=== PATIENT | male | born 1965 | race Caucasian/White ===

== ENCOUNTER 2018-12-08 20:09 | Inpatient (IN) | payer MEDICAID ==
[~2018-12-08] VITALS: Ht 175.3 cm; Wt 93.0 kg
--- NOTE | 2018-12-08 20:19 | NUR ---
PATIENT WENT FOR CT SCAN AND RETURN TO THE ROOM.
--- NOTE | 2018-12-08 20:30 | NUR ---
PATIENT WAS BROUGHT IN BY EMS WITH COMPLAINT OF LUQ ABDOMINAL PAIN, SHARP PAIN.
--- NOTE | 2018-12-08 21:00 | NUR ---
PATIENT WA SEEN BY WITH. MEDICATED WITH TORADOL IM.
[2018-12-08 21:09] LABS: BASOPHIL % 0.3 % (0-2); PLATELET COUNT 244 x10^3mcL (130-400)
[2018-12-08 21:11] LABS: RED CELL DISTRIBUTION WIDTH 15.3 % (11.5-14.5)
[2018-12-08 21:15] LABS: CALCIUM 9.3 mg/dL (8.5-10.1); CARBON DIOXIDE 25.5 mmol/L (21-32); CHLORIDE SERUM 105 mmol/L (98-107); CREATININE SERUM 0.9 mg/dL (0.7-1.3); GFR1 > 60 mL/min; GLUCOSE SERUM 221 mg/dL (74-106); POTASSIUM SERUM 3.5 mmol/L (3.5-5.1); SODIUM SERUM 144 mmol/L (136-145)
[2018-12-08 21:19] LABS: ALBUMIN 3.8 g/dL (3.4-5.0); ALKALINE PHOSPHATASE 98 U/L (46-116); ALT/SGPT 18 U/L (16-63); AST/SGOT 10 U/L (15-37); BILIRUBIN TOTAL 0.42 mg/dL (0.20-1.00); LIPASE 281 IU/L (73-393); TOTAL PROTEIN, SERUM 7.4 g/dL (6.4-8.2)
--- NOTE | 2018-12-09 00:12 | NUR ---
RESIDENT IS AT THE BEDSIDE. PATIENT IS ADMITTED.
--- NOTE | 2018-12-09 00:35 | NUR ---
REPORT WAS GIVEN TO BRIAN. PATIENT TRANSPORTED TO ROOM 242B.
[2018-12-09 00:39] LABS: T3 TOTAL 1.04 ng/mL
[2018-12-09 00:44] LABS: FREE T4 1.28 ng/dL (0.76-1.46); FREE THYROXINE INDEX 2.8 ug/dL (1.4-4.5); T4(THYROXINE) 8.9 ug/dL (4.7-13.3)
[2018-12-09 00:49] LABS: CHOLESTEROL/HDL RATIO 3.3; MAGNESIUM 2.1 mg/dL (1.8-2.4); PHOSPHOROUS 3.5 mg/dL (2.5-4.9)
[2018-12-09 00:51] LABS: microscopic required? NO
--- NOTE | 2018-12-09 01:05 | NUR ---
PER DR VALLES, PT NOT READY TO BE TRANSPORTED TO FLOOR YET UNTIL HE IS ABLE TO SPEAK WITH SURGEON.
--- NOTE | 2018-12-09 02:19 | NUR ---
PATIENT IS RESTING WITH NO COMPLAINT AT THIS TIME. PATIENT CANNOT LEAVE THE ED UNTIL SEEN BY SURGERY.
[2018-12-09 02:21] LABS: urine erythrocyte NEGATIVE (NEGATIVE)
[2018-12-09 02:32] LABS: AMPHETAMINE QUAL UR NONE DETECTED (See below)
--- NOTE | 2018-12-09 02:43 | NUR ---
SURGEON AT THE BEDSIDE TALKING TO THE PATIENT
--- NOTE | 2018-12-09 03:02 | NUR ---
NURSE WAS UPDATED ON THE PATIENT STATUS AFTER PATIENT WAS SEEN. PATIENT TRANSPORTED TO ROOM.
--- NOTE | 2018-12-09 03:14 | NUR ---
RECEIVED REPORT FROM MELISSA COFFMAN. PT IS STILL IN BED 15 WHILE WAITING FOR JESS NEELY TO SECURE THE GUN.
--- NOTE | 2018-12-09 03:50 | NUR ---
PT TRANSPORTED TO [facility]IA [facility] ON CM BY OLIVE COFFMAN AND [place] EMT. PT IN NAD
--- NOTE | 2018-12-09 04:25 | NUR ---
RECEIVED PT FROM ED VIA [employer]. KEPT COMFORTABLE IN BED. A/O X4. DENIES HEADACHE/DIZZINESS. ADM. WITH COMPLAINTS OF LT QUAD.ABD. PAIN, STATES 6/10 PAIN LEVEL AT THIS TIME. WILL MEDICATE ORDERED. AFEBRILE AND VITAL SIGNS STABLE.PLACED ON TELE #10, MONITOR SHOWS SR, DENIES CP OR PRESSURE. ABD. SOFT, OBESE, LAST BM 12/09/18.BS ACTIVE, NO N/V NOTED.SKIN WARM AND DRY TO TOUCH, INTACT. NO EDEMA NOTED. AMBULATORY. ORIENTED TO ROOM AND SURROUNDINGS. BED IN LOW POSITION. CALL LIGHT WITHIN REACH. WILL CONTINUE TO MONITOR.
--- NOTE | 2018-12-09 05:22 | NUR ---
STARTED ON IVF, NS AT 100ML/HR, INTACT AND INFUSING VIA RFA, SITE CLEAR. NPO EXCEPT MEDS MAINTAINED. MEDICATED WITH MORPHINE SULFATE 2MG IV ORDERED. KEPT COMFORTABLE. CALL LIGHT WITHIN REACH . WILL CONTINUE TO MONITOR.
[2018-12-09 06:13] LABS: PLATELET COUNT 211 x10^3mcL (130-400)
[2018-12-09 06:37] LABS: CALCIUM 9.2 mg/dL (8.5-10.1); CHLORIDE SERUM 109 mmol/L (98-107); CREATININE SERUM 0.7 mg/dL (0.7-1.3); GFR1 > 60 mL/min; GLUCOSE SERUM 138 mg/dL (74-106); MAGNESIUM 2.1 mg/dL (1.8-2.4); PHOSPHOROUS 4.2 mg/dL (2.5-4.9); POTASSIUM SERUM 3.7 mmol/L (3.5-5.1); SODIUM SERUM 147 mmol/L (136-145)
--- NOTE | 2018-12-09 07:05 | NUR ---
RECIEVED PT FROM NIGHT NURSE. PT IS LAYING DOWN IN BED WITH HOB UP. PT LOOKS TO BE IN NO ACUTE DISTRESS AT THIS TIME. RESPIRATIONS EVEN AND UNLABORED ON ROOM AIR. PT IS COMPLAINING OF 7/10 PAIN TO THE LUQ AND STATES THAT IT IS WORSE WITH MOVEMENT. IV SITE IS PATENT WITH NO SIGNS OF ERYTHEMA OR SWELLING WITH IV FLUIDS INFUSING. TELE MONITOR PRESENT. BED IN LOWEST POSITION, CALL LIGHT WITHIN REACH. WILL CONTINUE TO MONITOR.
[2018-12-09 07:15] LABS: RED CELL DISTRIBUTION WIDTH 14.9 % (11.5-14.5)
[2018-12-09 08:10] VITALS: BP 129/60
--- NOTE | 2018-12-09 10:00 | NUR ---
PT TAKEN DOWN TO X-RAY. PT IV H/L. PT TAKEN DOWN VIA WHEELCHAIR. WILL CONTINUE TO MONITOR.
--- NOTE | 2018-12-09 10:50 | NUR ---
CALLED TO XRAY ROOM 1, FOUND PATIENT SITTING ON FLOOR, PER BOX MAKER PATIENT BECAME DIZZY AND FELL, PATIENT REPORTS BEING LIGHTHEADED AND NEAR LOSS OF CONSCIOUSNESS AT TIME OF FALL. REPORTEDLY STRUCK BOTH KNEES ON FLOOR AND HIT RIGHT SIDE OF HEAD AGAINST TABLE DURING FALL. DR SIEGEL CALLED IN TO EVALUATE PATIENT AND ORDERED BILATERAL KNEE XRAYS. VS POST FALL SPO2=97%, HEART RATE=71, RR=15, AX=220/63. NOTIFIED PATIENT'S NURSE MARILYN.
--- NOTE | 2018-12-09 11:00 | NUR ---
PT RETURNED FROM X-RAY. NURSE AND PT REPORTED THAT PT PASSED OUT AND FELL IN X-RAY. PT CURRENTLY IS COMPLAINING OF NO PAIN WHILE LAYING DOWN IN BED AND STATES THAT HE FEELS PAIN TO THE LEFT KNEE ONLY WHEN BEARING WEIGHT. PT LOOKS TO BE IN NO ACUTE DISTRESS AT THIS TIME. CURRENT BP: 133/94, HR; 80, O2; 95% ON ROOM AIR. ERYTHEMA TO LEFT MID BACK BELOW AXILLARY, PT DOES NOT RECALL FALLING AND HITTING THE BACK. PT DENIES ANY PAIN WHEN PALPATING AREA OR LEFT KNEE. CALL LIGHT WITHIN REACH. WILL CONTINUE TO MONITOR.
--- NOTE | 2018-12-09 11:00 | NUR ---
DR. AMADOR AND DR. TOURE AWARE OF PT'S FALL.
--- NOTE | 2018-12-09 11:25 | NUR ---
PT TAKEN DOWN TO OR VIA GURNEY. PT TOOK HEARING AIDS DOWN STAIRS, PT STATES UNABLE TO HEAR WITHOUT THE HEARING AIDS. PROVIDED PT WITH CONTAINER THAT IS LABELED WITH PT LABEL, OR NURSE AWARE. TELE MONITOR INFORMED OF PT GOING TO OR.
[2018-12-09 11:38] LABS: BAND NEUTROPHIL 19 % (0-10); BASOPHIL 0 % (0-2); MONOCYTE 3 % (0-7); SEGMENTED NEUTROPHILS 77 % (37-75)
[2018-12-09 11:39] LABS: PLATELET MORPHOLOGY LARGE PLATELET SEEN; rbc morphology (normal/abnorm) ABNORMAL (NORMAL); tear drop cell (dacryocyte) 1+
--- NOTE | 2018-12-09 16:03 | NUR ---
RECIEVED PT FROM OR NURSE. PT IS LAYING DOWN IN BED AND LOOKS TO BE DROWSY, PT IS RESPONDING TO COMMANDS AND IS ORIENTED. CURRENT VITALS ARE BP: 151/73, HR:107, RR: 22, O2: 96% ON 5L, TEMP: 97.6, PAIN 5/10. PT STATES PAIN IS TOLERABLE AT THIS TIME. GUAZE AND ABD BINDER TO ABD, ADALBERTO DRAIN TO RLQ. DRESSING CDI. BED IN LOWEST POSITION, CALL LIGHT WITHIN REACH. FAMILY MEMBER AT BEDSIDE. NGT SUCTION TO LOW INTERMITTENT SUCTION. WILL CONITNUE TO MONITOR.
--- NOTE | 2018-12-09 17:06 | NUR ---
PT COMPLAINING OF 8/10 PAIN TO THE ABD. PT IS MORE AWAKE AND ALERT AT THIS TIME. DRESSING TO ABD IS CDI. CURRENT VITALS ARE BP: 139/75, HR: 104, RR: 20, O2 94% ON 5L NC. WILL MEDICATE ACCORDING TO EMAR.
[2018-12-09 17:08] VITALS: BP 139/75
--- NOTE | 2018-12-09 18:19 | NUR ---
PT IS LAYING DOWN IN BED RESTING WITH EYES CLOSED AND HOB UP. PT IS EASILY AROUSABLE AND IS ORIENTED TO X4. PT LOOKS TO BE IN NO ACUTE DISTRESS AND STATES PAIN IS TOLERABLE AT THIS TIME. RESPIRATIONS EVEN AND UNLABORED ON 5L NC. IV SITE PATENT WITH NO SIGNS OF ERYTHEMA OR SWELLING WITH IV FLUIDS INFUSING. BED IN LOWEST POSITION, FAMILY AT BEDSIDE. WILL ENDORSE TO ONCOMING.
--- NOTE | 2018-12-09 19:46 | NUR ---
RECEIVED PT IN BED AAOX4 , C/O INCISION PAIN 10/01 WILL MEDICATE PT ORDERED , NOTED PT WITH MARIA M ASENCIO NGT TO LOW SUCTION NO OUTPUT AT THE MOMENT , PT'S S/P X-LAP REPAIR OF PERFORATED BOWEL WITH LARGE ABD INCISION DRESSING CLEAN DRY AND INTACT WITH ABD BINDER , ADALBERTO DRAIN NOTED SCANT AMOUNT OF SEROSANGUINEOUS DRAINAGE NOTED , UNABE TO COMPRESSED ADALBERTO BULB WILL NOTIFY ( SURGEON ) LUNG SOUNDS DIMINISHED , ON 5L N/C SAT 96% LOWERED 02 TO 3L WILL SPORT CHECK PT'S 02 IN AN HOUR , NO RESP DISTRESS NOTED. SCD'S STOCKING OFF PER PT REQUEST .
[2018-12-09 20:01] VITALS: BP 144/65
[2018-12-09 20:06] VITALS: BP 128/81
--- NOTE | 2018-12-09 20:22 | NUR ---
SPOKE WITH DR WU REGARDING ADALBERTO BULB , STATED "HAVE RESIDENT LOOK AT IT AND CHANGE ADALBERTO BULB " CHARGE NURSE AWARE CALLED OR FOR ANOTHER BULB .
--- NOTE | 2018-12-09 20:45 | NUR ---
CHARGE NURSE AND OR NURSE CHANGED ADALBERTO BULB SOME SUCTION NOTED, BUT ADALBERTO BULB WONT STAY COMPRESSED , WILL DO MANUAL COMPRESSION FREQUENTLY FOR NOW , DR PAK AT THE BED SIDE ASSESED ADALBERTO . PT C/O INCISION PAIN 02/01 SURU MEDICATE PT WITH MORPHINE 2MG IVP . V/S 156/71 MAP 97 HR 96 SAT 95% ON 3L .
--- NOTE | 2018-12-10 00:05 | NUR ---
SURU RN MEDICATED PT WITH MORPHINE 2MG IVP FOR PAIN 10 V/S 141/69 MAP 90 SAT 93% ON 3L , ADALBERTO IN PLACE DRAINING DARK BROWN FLUIDS . WILL CON'T TO COMPRESS ADALBERTO MANUAL .INCISION DRESSING C/D/I , ABD BINDER INPLACE .
[2018-12-10 00:09] LABS: CALCIUM 8.5 mg/dL (8.5-10.1); CHLORIDE SERUM 115 mmol/L (98-107); CREATININE SERUM 1.2 mg/dL (0.7-1.3); GFR1 > 60 mL/min; GLUCOSE SERUM 200 mg/dL (74-106); POTASSIUM SERUM 4.1 mmol/L (3.5-5.1); SODIUM SERUM 149 mmol/L (136-145)
[2018-12-10 00:14] LABS: PLATELET COUNT 253 x10^3mcL (130-400)
[2018-12-10 00:20] LABS: RED CELL DISTRIBUTION WIDTH 15.6 % (11.5-14.5)
[2018-12-10 00:32] LABS: BAND NEUTROPHIL 4 % (0-10); MONOCYTE 3 % (0-7); SEGMENTED NEUTROPHILS 91 % (37-75)
[2018-12-10 00:34] LABS: acanthocyte (spur cell) 1+; rbc morphology (normal/abnorm) ABNORMAL (NORMAL)
[2018-12-10 00:35] LABS: PLATELET MORPHOLOGY PLATELETS NORMAL
--- NOTE | 2018-12-10 01:36 | NUR ---
PT VOIDED CLEAR YELLOW URINE 900ML VIA URINAL .
--- NOTE | 2018-12-10 03:23 | NUR ---
PT'S AWAKE C/O PAIN 02/01 WILL MEDICATE PT WITH PRN ORDERED, V/S 141/68 MAP 92 HR 89 SAT 96% , NGT INPLACE NO OUTPUT AT THE MOMENT , COMPRESSED ADALBERTO BULB.
[2018-12-10 05:35] VITALS: BP 136/75
--- NOTE | 2018-12-10 06:34 | NUR ---
MORPHINE 2MG GIVEN BY ANY IVP FOR PAIN , V/S 136/75 HR 89. ADALBERTO DRAINED 50ML BROWNISH COLOR FLUIDS , NGT NO OUTPUT , PLACEMENT CHECKED . DRESSING AND ABD BINDER CLEAN DRY AND INTACT . PT IN NO DISTRESS , ALL DUE MEDS GIVEN NO REACTION NOTED .PIV INTACT INFUSING WELL , TELE NSR .
[2018-12-10 06:43] LABS: PLATELET COUNT 255 x10^3mcL (130-400)
[2018-12-10 07:01] LABS: CALCIUM 9.1 mg/dL (8.5-10.1); CARBON DIOXIDE 17.8 mmol/L (21-32); CHLORIDE SERUM 117 mmol/L (98-107); CREATININE SERUM 1.1 mg/dL (0.7-1.3); GFR1 > 60 mL/min; GLUCOSE SERUM 166 mg/dL (74-106); MAGNESIUM 2.3 mg/dL (1.8-2.4); PHOSPHOROUS 2.9 mg/dL (2.5-4.9); POTASSIUM SERUM 4.6 mmol/L (3.5-5.1); SODIUM SERUM 151 mmol/L (136-145)
[2018-12-10 07:13] LABS: RED CELL DISTRIBUTION WIDTH 16.1 % (11.5-14.5)
--- NOTE | 2018-12-10 07:25 | NUR ---
RECEIVED PT FROM SHIFT NURSE A/OX4 SITTING UP IN BED. APPEARS IN NO ACUTE DISTRESS NOTED. NG TUBE IN PLACE UNDER LOW SUCTION. IV INTACT AND PATENT. ADALBERTO DRAIN IN PLACE. ABD DRESSING INTACT CDI WITH ABD BINDER. BED IN LOW POSITION. CALL LIGHT WITHIN REACH. WILL CONTINUE TO MONITOR.
[2018-12-10 09:02] VITALS: BP 149/72
[2018-12-10 09:32] LABS: BAND NEUTROPHIL 4 % (0-10); SEGMENTED NEUTROPHILS 96 % (37-75)
[2018-12-10 09:35] LABS: PLATELET MORPHOLOGY N
--- NOTE | 2018-12-10 09:35 | NUR ---
PT C/O OF LT SHOULDER PAIN 10/01. GAVE NORCO ORDERED. WILL CONTINUE TO MONITOR.
--- NOTE | 2018-12-10 09:50 | NUR ---
PT ASLEEP BUT AROUSABLE. WILL CONTINUE TO MONITOR.
--- NOTE | 2018-12-10 11:40 | NUR ---
PT C/O OF ABD PAIN 11/01. GAVE MORPHINE ORDERED. WILL CONTINUE TO MONITOR.
--- NOTE | 2018-12-10 12:00 | NUR ---
PT ASLEEP BUT AROSUABLE. WILL CONTINUE TO MONITOR.
[2018-12-10 12:35] VITALS: BP 148/71
[2018-12-10 13:23] LABS: rbc morphology (normal/abnorm) ABNORMAL (NORMAL)
--- NOTE | 2018-12-10 14:45 | NUR ---
PT TALKING ON THE PHONE. APPEARS IN NO ACUTE DISTRESS. DENIES ANY ABD PAIN AT THIS TIME. CALL LIGHT WITHIN REACH. WILL CONTINUE TO MONITOR.
--- NOTE | 2018-12-10 16:20 | NUR ---
CHANGED ABD DRESSING CDI PER DR WU
--- NOTE | 2018-12-10 16:52 | NUR ---
Initial Nutrition Assessment/Nutritional consult Dx: Ruptured Viscus PMHx: DM, Type II, HLD PSHx: Sigmoidal resection, gastric bypass surgery, bilateral testicular removal surgery, cholecystectomy, cosmetic surgery for gynecomastia per H and P Labs: (12/10) Na 151H, K 4.6, BG 166H, BUN 20H, Cr 1.1, A1c 9H, AST 10L, ALT 18, WBC 19.7H, H/H 14.1/43 Accucheck readings (12/09-12/10) 130-211 mg/dL with most readings >180 mg/dL. Insulin coverage is provided PRN. Meds: Colace, D10%, Dilaudid, Flagyl, Humulin, Morphine, [place], Protonix, Zofran, Zosyn Diet: NPO TPN: D10% AA 4.25% at 80 mL/Hr, which provides 192 g dextrose (652 kcal) and 81.6 g protein (179.6 kcal). Current regimen meets >75% estimated calorie and protein needs. Ht: 69" (175.3 cm) Wt: 194# (88.3 kg) BMI: 28.7 (WNL) IBW: 151# %IBW: 128% AJBW: 162# (73.5 kg) UBW: 190-200# Age: 53 y/o male Food Allergies: NKFA Skin: Abdominal sx incision site Louis: 21 Edema: None GI: Last BM x 2 (12/08 prior to admission) ADALBERTO drain: (12/10) 65 mL Per H&P, pt. admitted with extensive sx history (see above) accompanied by severe abdominal pain without c/o N/V/D/C. Pain onset was after pt. had 2 bowel movements. Denies BM after onset of abdominal pain. Abdominal/Pelvic CT scan conducted on 12/08/18 with findings of intraperitoneal air indicating viscous disruption per provider notes. Pt. underwent exploratory laparotomy procedure on 12/09/18. Pt. with NG tube in place during bedside visit with minimal output noted. No c/o GI distress at this time, noted with abdominal pain. Consult: TPN Problem with: No c/o N/V/D/C Problems with: Chewing: N Swallowing: N Recent wt change: None %wt change: N/A Vitamin/Supplement use: None Special diet at home: Regular Physical activity: None Education: Diet education not appropriate at this time, as pt. is NPO and is requiring TPN for nutrition support. Estimated Nutritional Needs Based on adjusted body weight 73.5 kg: Energy: 1668-1772 kcal/d (30-32 kcal/kg-wound healing support) Protein: 88-110 g/d (1.2-1.4 g/kg)-sound healing support/preservation of LBM Fluid: 5757-8011 ml/d (1 ml/kcal-fluid balance) or per doctor Nutrition Diagnosis 1. Increased nutrient needs r/t increased metabolic demands AEB presence of mid-abdominal sx wound s/p exploratory laparotomy and needs for TPN for nutrition support. Intervention/RD recommendations 1. Continue PPN regimen of D10% AA 4.25% with goal running rate of 80 mL/Hr to provide 1920 kcal, 192 g dextrose and 81.6 g protein, which meets >75% estimated needs, factoring in increased nutrient needs. GIR 1.51 (goal <4 mg/kg/min) Monitor/Evaluate Goal: TPN intake at least 75% of estimated needs Monitor: TPN intake, Labs (hepatic function, BG levels <180 mg/dL), GI function, TPN tolerance F/U in 2-3 days as high risk (12/12-/12/13)
--- NOTE | 2018-12-10 17:00 | NUR ---
Intervention/RD recommendations 1. Increase PPN regimen of D10% AA 4.25% with goal running rate of 100 mL/Hr to provide 1224 kcal, 240 g dextrose and 102 g protein, which meets >75% estimated protein needs, and 56% lower end of kcal needs. GIR 1.89 (goal <4 mg/kg/min)
--- NOTE | 2018-12-10 17:40 | NUR ---
PT C/O OF ABD PAIN 11/01. GAVE MORPHINE ORDERED. WILL CONTINUE TO MONITOR.
[2018-12-10 18:04] VITALS: BP 145/75
--- NOTE | 2018-12-10 18:26 | NUR ---
PT ASLEEP IN BED BUT AROUSABLE. NO ACUTE DISTRESS NOTED. IVS INTACT AND PATENT. ADALBERTO DRAIN IN PLACE. EMPTIED 30ML OF BROWN DRAINAGE. DR. WU AWARE. ABD DRESSING CDI. BED IN LOW POSITION. CALL LIGHT WITHIN REACH. WILL BE ENDORSED.
--- NOTE | 2018-12-10 20:10 | NUR ---
PT RESTING IN BED COMFORTABLY. COMPLAINING OF 5/10 ACHING PAIN AT SURGICAL SITE. A/O X4, CALM AND COOPERATIVE. [place], JADE HEARING AIDS. TELE 10, NSR. NO COMPLAINTS OF CHEST PAIN, N/V, DIZZINESS, OR PALPATATIONS. LUNG SOUNDS DIMINISHED JADE. 3/L NC, O2 SAT 96%. BOWEL SOUNDS HYPOACTIVE, LAST BM, 12/08. PT ADMITS TO PASSING GAS AND BURPING. ABD INCISION DRESSING CDI. ADALBERTO DRAIN TO R ABD. RFA IV X2 CDI, INFUSING. BED AT LOWEST POSITION, CALL LIGHT WITHIN REACH. WILL CONTINUE TO MONITOR.
[2018-12-10 20:45] VITALS: BP 153/74
--- NOTE | 2018-12-10 21:30 | NUR ---
PT COMPLAINING OF 6/10 SHARP PAIN AT INCISION SITE. GAVE PRN MORPHINE. WILL CONTINUE TO MONITOR.
--- NOTE | 2018-12-11 | NUR ---
PT RESTING IN BED COMFORTABLY, NO S/S OF PAIN AT THIS TIME. BREATHING EVEN AND UNLABORED ON 3L NC. NO S/S OF SOB. BED AT LOWEST POSITION, CALL LIGHT WITHIN REACH. WILL CONTINUE TO MONITOR.
--- NOTE | 2018-12-11 00:51 | NUR ---
PT COMPLAINING OF SHARP 7/10 PAIN AT INCISION SITE. MEDICATED WITH PRN DILAUDED. CALL LIGHT WITHIN REACH. WILL CONTINUE TO MONITOR.
[2018-12-11 06:02] VITALS: BP 152/72
--- NOTE | 2018-12-11 06:53 | NUR ---
PT RESTING IN BED COMFORTABLY. NO S/S OF PAIN AT THIS TIME. BREATHING EVEN AND UNLABORED ON 3L NC. NO S/S OF SOB, SPO2 95. ABD DRESSING CDI. RFA IVS CDI. ADALBERTO DRAIN 0 OUTPUT. [address] MATTHEWS AWARE, AND AT BEDSIDE. BED AT LOWEST POSITION. CALL LIGHT WITHIN REACH. WILL ENDORSE TO DAY NURSE.
[2018-12-11 07:16] LABS: PLATELET COUNT 254 x10^3mcL (130-400)
--- NOTE | 2018-12-11 07:17 | NUR ---
RECEIVED PT FROM SHIFT NURSE ASLEEP BUT AROUSABLE. NO ACUTE DISTRESS NOTED. RESP EVEN AND UNLABORED ON 3L NC. IV INTACT AND PATENT. CALL LIGHT WITHIN REACH. WILL CONTINUE TO MONITOR.
[2018-12-11 07:37] LABS: CALCIUM 9.2 mg/dL (8.5-10.1); CARBON DIOXIDE 19.2 mmol/L (21-32); CHLORIDE SERUM 120 mmol/L (98-107); GFR1 > 60 mL/min; GLUCOSE SERUM 160 mg/dL (74-106); MAGNESIUM 2.2 mg/dL (1.8-2.4); PHOSPHOROUS 2.2 mg/dL (2.5-4.9); POTASSIUM SERUM 3.9 mmol/L (3.5-5.1); SODIUM SERUM 155 mmol/L (136-145)
[2018-12-11 07:41] LABS: BASOPHIL % 0 % (0-2); RED CELL DISTRIBUTION WIDTH 16.1 % (11.5-14.5)
--- NOTE | 2018-12-11 08:10 | NUR ---
PT C/O OF ABD PAIN 12/01. GAVE MORPHINE ORDERD. WILL CONTINUE TO MONITOR.
--- NOTE | 2018-12-11 08:37 | NUR ---
PT ASLEEP BUT AROUSABLE. NO ACUTE DISTRESS NOTED. CALL LIGHT WITHIN REACH. WILL CONTINUE TO MONITOR.
[2018-12-11 09:30] VITALS: BP 158/77
--- NOTE | 2018-12-11 11:42 | NUR ---
PT C/O OF ABD PAIN. GAVE MORPHINE ORDERED. WILL CONTINUE TO MONITOR.
--- NOTE | 2018-12-11 12:46 | NUR ---
PT ASLEEP BUT AROUSABLE. WILL CONTINUE TO MONITOR.
[2018-12-11 13:27] VITALS: BP 159/78
--- NOTE | 2018-12-11 13:35 | NUR ---
PT C/O OF RT SHOULDER PAIN. GAVE DILAUDID ORDERED. WILL CONTINUE TO MONITOR.
--- NOTE | 2018-12-11 14:07 | NUR ---
PT ASLEEP BUT AROUSABLE. WILL CONTINUE TO MONITOR.
[2018-12-11 15:16] VITALS: BP 134/76
--- NOTE | 2018-12-11 15:17 | NUR ---
ASSISTED PT TO CHAIR. NO ACUTE DISTRESS. CALL LIGHT WITHIN REACH. WILL CONTINUE TO MONITOR.
--- NOTE | 2018-12-11 16:02 | NUR ---
PT C/O OF ABD PAIN 11/01. GAVE MORPHINE ORDERED. WILL CONTINUE TO MONITOR.
--- NOTE | 2018-12-11 16:30 | NUR ---
PT ASLEEP BUT AROUSABLE. WILL CONTINUE TO MONITOR
[2018-12-11 16:53] VITALS: BP 155/86
--- NOTE | 2018-12-11 18:24 | NUR ---
PT RESTING IN BED. NO C/O OF LEG PAIN AT THIS TIME. RESP EVEN AND UNLABORED ON 3L NC. NG TUBE IN PLACE WITH MEDIUM SUCTION. IVS INTACT AND PATENT. ABD DRESSING CDI. ADALBERTO DRAIN IN PLACE. REMOVED 20 ML OF BROWN DRAINAGE FROM ADALBERTO DRAIN. BED IN LOW POSITION. CALL LIGHT WITHIN REACH. WILL BE ENDORSED.
--- NOTE | 2018-12-11 19:57 | NUR ---
PT RESTING IN BED COMFORTABLY, COMPLAINING OF SHARP 5/10 PAIN AT INCISION SITE. MEDICATED WITH PRN MORPHINE. WILL MONITOR. PT A/O X4 CALM AND COOPERATIVE. [place] JADE EARS, USES HEARING AIDS. TELE 10, SINUS TACH HR 117. DENIES CHEST PAIN, N/V, DIZZINESS, OR PALPATATIONS. PALPABLE PULSES, NO EDEMA NOTED. LUNG SOUNDS CTA, DENIES SOB. O2 SAT 94% ON 3L NC. HYPOACTIVE BOWEL SOUNDS X4. DENIES PASSING GAS OR BURPING TODAY. ABD INCISION DRESSING CDI, ADALBERTO DRAIN TO R ABD INTACT AND DRAINING. RFA IVS CDI. BED AT LOWEST POSITION, CALL LIGHT WITHIN REACH. WILL CONTINUE TO MONITOR.
[2018-12-11 20:42] VITALS: BP 148/84
--- NOTE | 2018-12-11 23:20 | NUR ---
PT COMPLAINING OF 5/10 SHARP PAIN AT INCISION SITE. PT MEDICATED WTIH PRN MORPHINE. WILL CONTINUE TO MONITOR.
--- NOTE | 2018-12-12 | NUR ---
PT RESTING IN BED COMFORTABLY, NO S/S OF PAIN AT THIS TIME. BREATHING EVEN AND UNLABORED ON 3L NC. DENIES SOB. ADALBERTO DRAIN SUCTIONED. BED AT LOWEST POSITION, CALL LIGHT WITHIN REACH. WILL CONTINUE TO MONITOR.
--- NOTE | 2018-12-12 02:22 | NUR ---
I HAVE REVIEWED THE DATA COLLECTION BY MEGHNA GRANDE: CRIS LIAO ENTERED ON 12/11-12/12 I CONCUR WITH THE DATA AND ANY EXCEPTIONS OR COMMENTS ARE LISTED BELOW:
--- NOTE | 2018-12-12 02:52 | NUR ---
PT COMPLAINING OF 4/10 SHARP PAIN AT INCISION SITE. MEDICATED WITH PRN MORPHINE. WILL CONTINUE TO MONITOR.
[2018-12-12 05:30] VITALS: BP 157/85
--- NOTE | 2018-12-12 06:00 | NUR ---
PT RESTING IN BED COMFORTABLY, STATES NO PAIN AT THIS TIME. BREATHING EVEN AND UNLABORED ON 3L NC. DRESSING TO ABD CDI. ADALBERTO DRAIN TO SUCTION DRAINED 5ML OUTPUT. NG TUBE TO LOW INTERMITTENT SUCTIONING, 0 ML OUTPUT. BED AT LOWEST POSITION, CALL LIGHT WITHIN REACH. WILL ENDORSE TO DAY NURSE.
[2018-12-12 06:45] LABS: PLATELET COUNT 273 x10^3mcL (130-400)
[2018-12-12 07:13] LABS: CALCIUM 9.4 mg/dL (8.5-10.1); CARBON DIOXIDE 18.3 mmol/L (21-32); CHLORIDE SERUM 126 mmol/L (98-107); CREATININE SERUM 1.1 mg/dL (0.7-1.3); GFR1 > 60 mL/min; GLUCOSE SERUM 224 mg/dL (74-106); MAGNESIUM 2.4 mg/dL (1.8-2.4); PHOSPHOROUS 2.1 mg/dL (2.5-4.9); POTASSIUM SERUM 3.2 mmol/L (3.5-5.1)
[2018-12-12 07:14] LABS: RED CELL DISTRIBUTION WIDTH 16.1 % (11.5-14.5)
[2018-12-12 07:46] LABS: SODIUM SERUM 164 mmol/L (136-145)
--- NOTE | 2018-12-12 07:50 | NUR ---
PATIENT A/OX4, ABLE TO MAKE NEEDS KNOWN AND FOLLOW COMMANDS, QUINAULT NOTED WITH B/L HEARING AIDS IN PLACE. DENIES HEADACHE/DIZZINESS. TELE [address], DENIES CP, HR 96. LUNGS CTA, 3L NC IN PLACE O2 SAT 95%, BREATHING E/U, UTILIZING INCENTIVE SPIROMETER REACHING 1000. PERIPHERAL PULSES PLAPLBE, NO EDEMA. NGT IN PLACE TO LIS, NO OUTPUT. ABD WITH DRESSING CDI, ADALBERTO DRAIN TO RT SIDE SCANT SEROUS OUTPUT LIGHT KOO/YELLOWISH COLOR. BOWEL SOUNDS HYPOACTIVE, PATIENT ADMITS TO BURPING PASSED GAS YESTERDAY. NO BM YET POSTOP. REPORTS PAIN PRESENT TO ABD, WILL GIVE PAIN MED. VOIDS FREELY TO URINAL, YELLOW/CLEAR. 2 IV'S TO RFA, SITES WNL, NO REDNESS/SWELLING. TPN RUNNING AT 80ML/HR. CALL LIGHT WITHIN REACH. WILL CONT TO MONITOR.
--- NOTE | 2018-12-12 08:15 | NUR ---
RECEIVED CRITICAL VALUE NA [address] BYRON LOCKE.
[2018-12-12 09:41] VITALS: BP 148/84
[2018-12-12 10:06] LABS: BAND NEUTROPHIL 2 % (0-10); BASOPHIL 0 % (0-2); MONOCYTE 3 % (0-7); SEGMENTED NEUTROPHILS 93 % (37-75)
[2018-12-12 10:10] LABS: PLATELET MORPHOLOGY PLATELETS NORMAL
--- NOTE | 2018-12-12 11:10 | NUR ---
PER DR GILMORE, REPLACE FLUID THERAPY TO D5W IVF AT 80ML/HR. VERIFIED BY PHARMACY. INITIATED.
--- NOTE | 2018-12-12 11:45 | NUR ---
DR BRIGHT (NEPHRO) AT BEDSIDE. OKAY TO INCREASE RATE OF D5W. ORDERED FOR 130ML/HR.
--- NOTE | 2018-12-12 12:48 | NUR ---
Follow-Up Nutrition Assessment Dx: Ruptured Viscus Labs: (12/10) Na 164H, K 3.2, BG 224H, BUN 31H, Cr 1.1, WBC 13.8H, H/H 15.6/48 Accucheck readings (12/10-12/12) 153-261 mg/dL with most readings >180 mg/dL. Insulin coverage is provided PRN. Meds: Colace, D10%, Dilaudid, Flagyl, Humulin, Morphine, [place], Protonix, Zofran, Zosyn Diet: NPO I and O: (12/12) 2200/2700 -2500 (12/11) 2250/1400 +850 (12/10) 1650/2065 -415 TPN: D10% AA 4.25% at 80 mL/Hr, which provides 192 g dextrose (652 kcal) and 81.6 g protein (179.6 kcal). Provides >75% estimated protein needs, but <75% kcal needs. Weights: (12/09) 88.5 kg Skin: Abdominal sx incision site Louis: 14 Edema: None GI: Last BM x 2 (12/08 prior to admission) ADALBERTO drain: (12/12) minimal per high school guidance counselor Per provider progress notes, pt. continues to c/o abdominal pain and gas, but no BM since exploratory laparotomy. TPN D10% AA 4.25% running at 80 mL/Hr and NG to right nare on intermittent suctioning noted during visit. Reports no N/V/D, but no BM since Sx procedure. Minimal NGT output noted during visit. Spoke with provider regarding PPN recommendations, discussed possible increase in IVF administration to correct electrolyte levels prior to adjusting PPN rate. Estimated Nutritional Needs Based on adjusted body weight 73.5 kg: No changes from previous assessment. Energy: 7581-7430 kcal/d (30-32 kcal/kg-wound healing support) Protein: 88-110 g/d (1.2-1.4 g/kg)-sound healing support/preservation of LBM Fluid: 5512-4299 ml/d (1 ml/kcal-fluid balance) or per doctor Nutrition Diagnosis 1. Increased nutrient needs r/t increased metabolic demands AEB presence of mid-abdominal sx wound s/p exploratory laparotomy and needs for TPN for nutrition support. (ongoing) Intervention/RD recommendations 1. When medically stable, increase PPN regimen of D10% AA 4.25% with goal running rate of 100 mL/Hr to provide 1224 kcal, 240 g dextrose and 102 g protein, which meets >75% estimated protein needs, and 56% lower end of kcal needs. GIR 1.89 (goal <4 mg/kg/min) 2. Consider increasing IVF rate for severely elevated Na values. Monitor/Evaluate Goal: TPN intake at least 75% of estimated needs (not met) New goal: TPN intake at least 60% of estimated needs Monitor: TPN intake, Labs (hepatic function, BG levels <180 mg/dL), GI function, TPN tolerance F/U in 2-3 days as high risk (12/14-12/15)
--- NOTE | 2018-12-12 13:30 | NUR ---
PATIENT C/O PAIN TO LOWER RT FOREARM IV SITE, SITE WITH SLIGHT REDNESS. IV DC'D CATH INTACT. NEW IV STARTED TO RT HAND 22G. IV FLUIDS RESUMED. PATIENT TOLERATED WELL. WILL CONT TO MONITOR.
[2018-12-12 14:00] VITALS: BP 150/84
--- NOTE | 2018-12-12 14:50 | NUR ---
ASSISTED PATIENT TO TRANSFER TO CHAIR AT BEDSIDE SAFELY. BED LINENS CHANGED. ASSISTANCE PROVIDED GOING BACK TO BED AFTER SITTING UP IN CHAIR FOR 30 MINUTES. PATIENT C/O PAIN TO ABDOMEN AND LEFT UPPER BACK "IM FEELING THE SAME PAIN I FELT BEFORE THE SURGERY, WHEN SOMETHING WAS LEAKING". DRESSINGS TO ABD CDI, SMALL SEROUS OUTPUT NOTED TO ADALBERTO DRAIN. OFFERED DILAUDID, REFUSED AND WILLING TO WAIT FOR MORPHINE WHEN DUE. REQUESTING TO NOTIFY DR OF PAIN. DR MATTHEWS MADE AWARE VIA TELEPHONE, STATES WILL PAGE SURGEON AND FOLLOW UP ON RECOMMENDATIONS. PATIENT MADE AWARE
--- NOTE | 2018-12-12 15:12 | NUR ---
DR MATTHEWS NOW AT BEDSIDE.
[2018-12-12 16:05] LABS: CALCIUM 9.8 mg/dL (8.5-10.1); CARBON DIOXIDE 21.5 mmol/L (21-32); CHLORIDE SERUM 128 mmol/L (98-107); GFR1 > 60 mL/min; GLUCOSE SERUM 240 mg/dL (74-106); POTASSIUM SERUM 3.1 mmol/L (3.5-5.1)
[2018-12-12 16:11] LABS: SODIUM SERUM 167 mmol/L (136-145)
--- NOTE | 2018-12-12 16:30 | NUR ---
CT ABD W/ ORAL CONTRAST ORDERED BY DR MATTHEWS. NGT ON STANDBY/CLAMPED, ORAL CONTRAST INITIATED. PER RADIOLOGY, WILL FURNITURE ARRANGER PATIENT FOR CT AT AROUND 1900. DR MATTHEWS AND PHARMACY MADE AWARE OF NEW CRITICAL LABS NA 167 AND K 3.1- PER PHARMACY, WILL CHANGE TPN PER LABS AND WILL BE AVAILABLE THIS EVENING.
--- NOTE | 2018-12-12 18:19 | NUR ---
PATIENT C/O SUDDEN INCREASED PAIN TO ABDOMEN, MORPHINE ALREADY GIVEN. SALES REPRESENTATIVE [employer] REPORTS TELE READING ST 130-140. ASSISTED PATIENT TO REPOSITION FOR BETTER COMFORT. INCENTIVE SPIROMETER REINFORCED. DRESSINGS TO ABD CDI. VITALS TAKEN. O2 SAT 94% ON 3L NC. PATIENT SITTING UP ON BED, HOB ELEVATED >60 DEGREES. PATIENT CALM. WILL CONT TO MONITOR.
[2018-12-12 18:27] VITALS: BP 155/99
--- NOTE | 2018-12-12 20:00 | NUR ---
PT A/A/O X1, CONFUSED AND LETHARGIC. DENIES DIZZINESS AND HEADACHE. BREATH SOUNDS DIMINISHED JADE LUNGS. BREATHING EVEN AND SHALLOW ON 3L NC, SPO2 92%. RESP RATE 28. DENIES CHEST PAIN AND PRESSURE, HR 149. BOWEL SOUNDS ACTIVE. NO C/O N/V AND ABDOMINAL PAIN THUS FAR. SURGICAL WOUND WITH DRESSING ON THE MID ABDOMEN C/D/I. ADALBERTO DRAIN NOTED ON THE RIGHT ABDOMEN WITH SMALL AMOUNT OF MILKY COLORED FLUID. NGT NOTED ON THE RIGHT NARES ON LOW INTERMITENT SUCTIONING WITH NO REDISUAL OUTPUT NOTED. IV NOTED ON THE RIGHT HAND INFUSING WITH D5 WATER AT 130 ML/HR AND IV NOTED ON THE RIGHT FOREARM INFUSING WITH TPN AT 80 ML/HR. MADE PT COMFORTABLE. PLACED CALL [facility] WITH IN REACH, WILL CONTINUE TO MONITOR.
--- NOTE | 2018-12-12 20:30 | NUR ---
PATIENTS TEMP 100.2, COOLING MEASURES IMPLEMENTED. ICE PACKED PLACED ON PT ARMPITS, AC TURNED ON. BLANKET TAKEN OF PT. WILL CONTINUE TO MONITOR.
[2018-12-12 20:57] VITALS: BP 145/95
--- NOTE | 2018-12-12 21:09 | NUR ---
SPOKE WITH DR. WU VIA PHONE. NOTIFIED DR. WU REGARDING PATIENT STATUS, RESPIRATION, HEART RATE, AND TEMP. NEW ORDERS GIVEN BY AND CARRIED OUT. DR. SCHNEIDER NOTIFIED OF SPEAKING WITH DR. WU. WILL CONTINUE TO MONITOR.
--- NOTE | 2018-12-12 21:35 | NUR ---
CRITICAL RESULTS OF PATIENT RECIEVED FROM RADIOLOGY VIA TELEPHONE. DR. SCHNEIDER NOTIFIED BY CHARGE NURSE TERESSA. WILL CONTINUE TO MONITOR.
[2018-12-12 21:38] LABS: PLATELET COUNT 281 x10^3mcL (130-400)
[2018-12-12 21:39] LABS: RED CELL DISTRIBUTION WIDTH 16.5 % (11.5-14.5)
[2018-12-12 21:45] LABS: ALKALINE PHOSPHATASE 71 U/L (46-116); ALT/SGPT 15 U/L (16-63); AST/SGOT 18 U/L (15-37); BILIRUBIN TOTAL 0.68 mg/dL (0.20-1.00); CALCIUM 9.9 mg/dL (8.5-10.1); CARBON DIOXIDE 20.7 mmol/L (21-32); CHLORIDE SERUM 123 mmol/L (98-107); CREATININE SERUM 1.2 mg/dL (0.7-1.3); GFR1 > 60 mL/min; GLUCOSE SERUM 246 mg/dL (74-106); TOTAL PROTEIN, SERUM 6.6 g/dL (6.4-8.2)
[2018-12-12 21:52] LABS: ALBUMIN 2.3 g/dL (3.4-5.0)
[2018-12-12 21:53] LABS: POTASSIUM SERUM 2.9 mmol/L (3.5-5.1); SODIUM SERUM 162 mmol/L (136-145)
--- NOTE | 2018-12-12 22:00 | NUR ---
DR. SCHNEIDER SPOKE WITH THE PATIENTS BROTHER VIA TELEPHONETO GET PATIENTS CONSENT.
[2018-12-12 22:28] LABS: BAND NEUTROPHIL 15 % (0-10); SEGMENTED NEUTROPHILS 80 % (37-75)
[2018-12-12 22:29] LABS: ATYPICAL LYMPH 2 %
--- NOTE | 2018-12-12 22:30 | NUR ---
2223: DR. WU SAW THE PT AT BEDSIDE AND SPOKE WITH THE PATIENTS BROTHER ON THE PHONE. ASKED THE BROTHER TO COME TO THE HOSPITAL D/T PT WILL HAVE ANOTHER SURGERY. 2230: CALERO CATH INSERTED BY CHYNA COFFMAN. PT TOLERATED IT WELL.
[2018-12-12 22:46] VITALS: BP 148/88
--- NOTE | 2018-12-12 22:54 | NUR ---
GAVE REPORT TO [facility] REGARDING PT.
[2018-12-12 22:55] LABS: rbc morphology (normal/abnorm) ABNORMAL (NORMAL)
--- NOTE | 2018-12-12 23:10 | NUR ---
PT PICKED UP BY [facility] NURSES TO SEND TO [facility] FOR SURGERY.
--- NOTE | 2018-12-12 23:49 | NUR ---
AT 2029- GOT A CALL FROM LEILANI, HE SAID THAT HE IS THE BROTHER OF THE PT. HE SAID THAT HE WANTS TO REQUEST TRANSFER OF THE PT TO [facility], ITS A HOSPITAL NEAR WHERE HE LIVE. NOTIFIED THE DOCTOR CORE FILER DR. SCHNEIDER WHO SAID SHE WILL FOLLOW UP IN THE MORNING TO THE SENIOR TEAM ABOUT HIS REQUEST. MEANWHILE DR. SCHNEIDER TOLD ME THAT SHE IS WAITING FOR THE RESULT OF THE CT SCAN OF THE ABDOMEN. SO NOTIFIED LEILANI THE BROTHER ABOUT WHAT DR. SCHNEIDER TOLD ME. AND THEN AT 2129, RECEIVED A CALL FROM [facility] CHARGE NURSE IN 2N THAT THEY WANT TO TRANSFER TO ICU. AND ABOUT 2144 DR. WU CALLED ME THAT HE WANTED TO DO A STAT SURGERY EX LAP FOR THIS PT. NOTIFIED 2N AND SPOKE TO TERESSA. CALLED DR. LECHUGA FIRST AND HE TOLD ME THAT HE IS DOING STAT CS IN [facility] THE MOMENT OF THE CALL. SO NOTIFIED DR. SCHNEIDER AND DR WU. NOTIFIED [facility], AND [facility]. [facility] SUGGESTED TO LET ALL OR CREW TO COME AT 2229. SO I TOLD ALL OF THEM. ALSO DR. WU TOLD ME THAT HE STILL WANTS TO TRANSFER THE PT TO HIGHER LEVEL OF CARE THAT HAS BARIATIC SURGERY. SO CALLED [facility]. CALLED [facility] AND SPOKE TO STEPHY NURSE FLIGHT OPERATIONS DISPATCH CLERK WHO SAID THEY DON'T HAVE A BED AT THIS TIME. BUT SHE WANTS US TO FAX THE INFORMATION OF THE PT AND FACE SHEET WHICH WE DID. CALLED [facility] AND THEY SAID THEY DONT HAVE BARIATRIC SURGERY CASES. CALLED [facility] AND TOLD ME NO ICU BED FOR THAT PT. PRECIOUS TOLD ME THAT [facility] NEEDS ICU BED, THEY DON'T HAVE ANY AT THIS TIME. BUT SHE WANTS US TO FAX THE INFORMATION. CALLED [facility] AND GAVE US A NUMBER TO FAX PT'S INFORMATION. THE FAMILY CAME AND TOLD US THAT PT HAD SURGERY IN [facility].
--- NOTE | 2018-12-12 23:57 | NUR ---
PATIENTS BROTHER COLLECTED PATIENTS BELONGINGS THAT INCLUDED PATIENTS, JADE HEARING AIDS, WALLET, PHONE AND CLOTHES. INFORMED THE PATIENTS BROTHER THAT PT IS IN OR AND THAT THE PT WILL GO TO ICU BED 5 AFTER SURGERY.
--- NOTE | 2018-12-12 23:58 | NUR ---
INFORMED THE PATIENTS BROTHER THAT DELIVERY AND INSTALLATION SUBCONTRACTOR IS STILL CURRENTLY LOOKING FOR A HOSPITAL WHERE THE PT CAN TRANSFER FOR HIGHER LEVEL OF CARE.
[2018-12-13] VITALS (18 sets, daily range): BP systolic 88–134; BP diastolic 62–93
--- NOTE | 2018-12-13 | NUR ---
GAVE REPORT TO LOS OF ICU REGARDING PT.
--- NOTE | 2018-12-13 00:28 | NUR ---
CALLED [facility] AND TALKED TO THE SALES VENDOR WHO DIRECTED ME TO A NETWORK SYSTEMS INTEGRATOR -ROBERT. SO CALLED [phone] AND WAS ABLE TO CONTACT WITH DEWAYNE. ROBERT WAS NOT AVAILABLE AT THAT TIME. I TOLD DEWAYNE THE STUATION AND SHE SAID THAT ROBERT WILL FOLLOW UP WITH ME. OR TO CALL THEM AGAIN. SO FAR NO ADMITTING HOSPITAL YET.
--- NOTE | 2018-12-13 00:37 | NUR ---
CALLED [facility] AND REFERED THE SITUATION OF THE PT NEEDING BARIATTIC SURGERY AND THEY SAID THEY DON'T HAVE BARIATRIC SURGERY.
--- NOTE | 2018-12-13 00:41 | NUR ---
ALSO CALLED [facility] LEFT A MESSAGE TO TRANSFER CENTER. WAITING FOR A CALL BACK.
--- NOTE | 2018-12-13 00:47 | NUR ---
CALLED [facility] TWICE AND WAS ABLE TO TALKED TO TERESSA AND HE SAID THAT THEY DO HAVE A BARIATRIC SURGERY AND WILL ACCEPT THIS PT. WILL FOLLOW UP WITH FAXING INFORMATION TO TERESSA AT [phone]. AND UPDATE HIM OF PT'S CONDITION AFTER THE SURGERY.
--- NOTE | 2018-12-13 02:30 | NUR ---
RECEIVED REPORT FROM GARETT LEAVE MANAGER. PT IS ALERT AND INTUBATED, UNABLE TO FOLLOW COMMANDS, RESPONDS TO TACTILE STIMULUS. 7.0 ETT AT 23 CM @ LL. RNGT PATENT, AND INTACT. PT IS BREATHING E/U ON VENT, SETTINGS INCLUDE RATE: 10, TV: 600, O2: 100%, AND PEEP: 5. LUNG SOUNDS CLEAR TO BILATERAL UPPER LOBES, AND LOWER LOBES. S1 S2 HEART SOUNDS AUSCULTATED. SINUS TACHYCARDIA. PULSES MODERATE X4. SKIN IS COOL AND PALE. CAP REFILL <3 SECONDS X4. PERIPHERAL IVS TO LEFT HAND, RIGHT FA, AND RIGHT WRIST PATENT, DRESSING CDI. PT STARTED ON PROPOFOL AT 10 MCG/KG/MIN AND D5W INFUSING AT 100 ML/HR PER EMAR. ABD IS SOFT AND ROUNDED WITH ABD BINDER IN PLACE POST OP SURGERY. PT HAS 2 L ADALBERTO DRAINS, AND 1 RIGHT ADALBERTO DRAIN WITH SMALL AMT OF SANGUINOUS OUTPUT. CALERO DRAINING VIA GRAVITY. URINE IS YELLOW WITH GOOD OUTPUT. SCD IN PLACE. ALL QUESTIONS AND CONCERNS ANSWERED. WILL CONTINUE TO MONITOR.
[2018-12-13 02:58] LABS: BASOPHIL % 0.1 % (0-2); PLATELET COUNT 265 x10^3mcL (130-400)
[2018-12-13 03:00] LABS: CALCIUM 9.3 mg/dL (8.5-10.1); CARBON DIOXIDE 22.1 mmol/L (21-32); CREATININE SERUM 1.9 mg/dL (0.7-1.3); POTASSIUM SERUM 3.5 mmol/L (3.5-5.1); RED CELL DISTRIBUTION WIDTH 16.8 % (11.5-14.5)
--- NOTE | 2018-12-13 03:56 | NUR ---
SPOKE TO DR. GRACE, STATED THAT WE WILL NOT BE RESTARTING PPN FOR PT AT THIS TIME.
--- NOTE | 2018-12-13 04:30 | NUR ---
RT TITRATED FIO2 FROM 100 - 90%. PT TOLERATING WELL.
--- NOTE | 2018-12-13 05:36 | NUR ---
RT TITRATED FIO2 FROM 90 - 80%. PT TOLERATING WELL.
--- NOTE | 2018-12-13 07:02 | NUR ---
GARETT (PTS BROTHER) WOULD LIKE TO BE CALLED WHEN WE HEAR SOMETHING ABOUT THE TRANSFER TO [facility]. PHONE NUMBER IS .
--- NOTE | 2018-12-13 07:20 | NUR ---
RECIEVED REPORT FROM MEGHNA MADISON TO ASSUME ALL CARES. ALL QUESTIONS AND CONCERNS ADDRESSED. PATIENT IS CURRENTLY SEDATED ON DIPRIVAN DRIP. ETT TO VENT. RESPIRATIONS ARE EQUAL AND SYMMETRICAL. PATIENT IS TACHYCARDIC WITH HR 130-140'S. IV'S NOTED TO LEFT AND RIGHT HAND AND RFA, NO SIGNS OF INFILTRATION NOTED. SCD'S ON TO BLE. RIGHT NGT IN PLACE AND CONNECTED TO LIS WITH NO DRAINAGE. F/C IN PLACE AND SECURED DRAINING YELLOW URINE VIA GRAVITY. SURGICAL ABDOMINAL DRESSING IN PLACE C/D/I COVERED WITH ABDOMINAL BINDER S/P EX LAP EARLY THIS MORNING. TOTAL OF 3 ADALBERTO DRAIN'S NOTED: 2 ON THE LEFT AND 1 ON THE RIGHT, DRAINING MINIMAL SEROSANGANIOUS FLUID VIA BULB SUCTION. BED TO LOWEST POSITION, SIDE RAILS UP X3, HOB ELEVATED 30 DEGREES, CALL LIGHT WITHIN REACH.
[2018-12-13 09:31] LABS: PLATELET COUNT 238 x10^3mcL (130-400)
[2018-12-13 09:36] LABS: RED CELL DISTRIBUTION WIDTH 16.6 % (11.5-14.5)
--- NOTE | 2018-12-13 09:46 | NUR ---
PATIENT FEELS WARM. TEMPORAL TEMP IS 101.0 F. SHEET REMOVED AND ICE PACKS APPLIED. AC TURNED ON. PATIENT REPOSITIONED TO RIGHT SIDE WITH PILLOWS IN PLACE TO ALLEVIATE PRESSURE POINTS AND HOB ELEVATED 30 DEGREES. WILL CONTINUE TO MONITOR.
[2018-12-13 09:48] LABS: CALCIUM 9.3 mg/dL (8.5-10.1); CARBON DIOXIDE 28.2 mmol/L (21-32); CREATININE SERUM 2.2 mg/dL (0.7-1.3); POTASSIUM SERUM 3.3 mmol/L (3.5-5.1)
--- NOTE | 2018-12-13 10:00 | NUR ---
PATIENT ROUNDS WITH DR. TOURE AND RESIDENTS. CHARGE NURSE AND PRIMARY NURSE AT BEDSIDE. UPDATES PROVIDED AND POC DISCUSSED. DR. MATTHEWS MADE AWARE TEMP IS 101.0 F AND ASKED FOR AN ORDER FOR TYLENLOL NV. ALSO, DR. MATTHEWS MADE AWARE THE LAST SODIUM LEVEL CAME BACK AT 162. WILL CONTINUE TO MONITOR.
--- NOTE | 2018-12-13 10:30 | NUR ---
LISA, RT AT BEDSIDE AND TITRATED THE FI02 DOWN TO 70%. NO SIGNS OF RESP DISTRESS. WILL CONTINUE TO MONITOR.
--- NOTE | 2018-12-13 10:30 | NUR ---
TITRATED FIO2 TO 70%. WILL CONT.TO MONITOR
[2018-12-13 10:35] LABS: BAND NEUTROPHIL 1 % (0-10); BASOPHIL 0 % (0-2); MONOCYTE 4 % (0-7); SEGMENTED NEUTROPHILS 94 % (37-75)
[2018-12-13 10:38] LABS: PLATELET MORPHOLOGY PLATELETS DECREASED; rbc morphology (normal/abnorm) ABNORMAL (NORMAL)
--- NOTE | 2018-12-13 10:52 | NUR ---
TEMPERATURE 100.1 F TEMPORAL. ICE PACKS REMAIN IN PLACE. WILL CONTINUE TO MONITOR.
[2018-12-13 12:37] LABS: CALCIUM 9.1 mg/dL (8.5-10.1); CARBON DIOXIDE 25.1 mmol/L (21-32); CHLORIDE SERUM 123 mmol/L (98-107); CREATININE SERUM 1.9 mg/dL (0.7-1.3); GFR1 39 mL/min; GLUCOSE SERUM 250 mg/dL (74-106); POTASSIUM SERUM 3.2 mmol/L (3.5-5.1); SODIUM SERUM 158 mmol/L (136-145)
--- NOTE | 2018-12-13 12:49 | NUR ---
DR. VAZQUEZ AT BEDSIDE TO ASSESS PATIENT. UPDATES PROVIDED AND POC DISCUSSED. ORDER TO TITRATE THE D5 UP FROM 130 TO 150 ML/HR. WILL FOLLOW AND CONTINUE TO MONITOR.
[2018-12-13 12:50] LABS: BASOPHIL % 0.2 % (0-2); PLATELET COUNT 217 x10^3mcL (130-400)
[2018-12-13 12:52] LABS: RED CELL DISTRIBUTION WIDTH 16.6 % (11.5-14.5)
--- NOTE | 2018-12-13 16:11 | NUR ---
CALERO CARE PROVIDED.
--- NOTE | 2018-12-13 16:22 | NUR ---
PHYSICAL THERAPY NOTE ATTEMPTED FOR PHYSICAL THERAPY EVAL. PATIENT IS INTUBATED. NOT AN APPROPRIATE CANDIDATE FOR EVAL AT THIS TIME.
--- NOTE | 2018-12-13 17:14 | NUR ---
RECIEVED REPORT FROM LAZARO COFFMAN. ALL QUESTIONS ANSWERED AND ADDRESSED. WILL RESUME CARE OF PT.
--- NOTE | 2018-12-13 17:24 | NUR ---
REPORT GIVEN TO MEGHNA MIXON TO ASSUME ALL CARES. ALL QUESTIONS AND CONCERNS ADDRESSED.
--- NOTE | 2018-12-13 17:36 | NUR ---
[facility] CALLED AND STATED THAT THEY CANNOT DO A CULTURE FROM THE ADALBERTO DRAINS OF THE PT. WILL ENDORSE TO ATTENDINGS/RESIDENTS.
--- NOTE | 2018-12-13 18:35 | NUR ---
DR. GARCIA AT BEDSIDE ASSESSING PT. QUESTIONS AND CONCERNS ADDRESSED. ORDER FOR PT,PTT, ABG TO BE DONE. PPN IS OK TO GIVE PER DR. GARCIA. WILL CARRY OUT ORDERS.
[2018-12-13 18:51] LABS: PLATELET COUNT 198 x10^3mcL (130-400)
[2018-12-13 18:56] LABS: RED CELL DISTRIBUTION WIDTH 16.3 % (11.5-14.5)
--- NOTE | 2018-12-13 19:10 | NUR ---
RECEIVED REPORT FROM APURVA COFFMAN. ASSUMING ALL CARE
--- NOTE | 2018-12-13 19:25 | NUR ---
RECEIVED PT LAYING IN BED. PT IS INTUBATED AND SEDATED ON FENTANYL @ 1 MCG/KG/HR AND VERSED @ 1 MG/HR. RSS=4. PT RESPONDS TO TACTILE STIMULI. PT DOES NOT FOLLOW SIMPLE COMMANDS. PUPILS WITH SLUGGISH RESPONSE TO LIGHT, 2 MM BILAT. GAG REFLEX PRESENT. PT ATTEMPTS TO TRACK WITH EYES. 8.0 ETT INTACT/SEUCRED, 23 CM @ LL. RIGHT NARE NGT PLACED ON LIS WITH NO DRAINAGE NOTED. EENT FREE OF DISCHARGE. DRY ORAL MUCOSA. ORAL CARE PROVIDED PER VAP PROTOCOL. BREATHING IS E/U ON VENT. VENT SETTINGS: VCV/AC MODE, RATE 10, VT 600, PEEP 5, FIO2 50%. LUNGS SOUND CLEAR TO BUL AND DIMIN TO BLL. SYMMETRICAL CHEST EXPANSION NOTED. S1/S2 HEART SOUNDS AUSCULTATED. CHEST WALL EQUAL AND SYMMETRICAL. NO S/S OF CP NOTED. HR 120, BP 111/70 MAP 82. PALPABLE PULSES X4 EXTREMITIES. SKIN IS WARM AND DRY. NO EDEMA NOTED. D5 INFUSING @ 150 ML/HR. RFA, RH, AND LH IV IN PLACE WITH NO S/S OF INFILTRATION NOTED. SCD IN PLACE. PT ON BEDREST. GENERALIZED WEAKNESS. PT ON BILAT SOFT WRIST RESTRAINT WITH GOOD CIRCULATION NOTED. NO JOINT SWELLING/DEFORMITY NOTED. PT IS NPO AT THIS TIME. ABD IS SOFT/FLAT. BOWEL SOUNDS HYPOACTIVE X4 QUADRANTS. NO BM NOTED. ABD DRESSING CDI WITH ABD BINDER IN PLACE S/P EXP LAP. 2 LEFT ADALBERTO DRAINS AND 1 RIGHT ADALBERTO DRAIN WITH SEROSANGUINOUS FLUID NOTED. CALERO IS INTACT/SECURED, DRAINING VIA GRAVITY WITH SEAN COLORED URINE. PT WITH HX OF ORCHIECTOMY. PT ON TURN SCHED Q2H. FAMILY AT BEDSIDE. BED IN LOW POSITION. CALL LIGHT IN REACH. WILL CONT TO MONITOR
[2018-12-13 19:27] LABS: BAND NEUTROPHIL 1 % (0-10); MONOCYTE 12 % (0-7); SEGMENTED NEUTROPHILS 79 % (37-75)
[2018-12-13 19:28] LABS: CALCIUM 8.8 mg/dL (8.5-10.1); CARBON DIOXIDE 25.8 mmol/L (21-32); CREATININE SERUM 2.2 mg/dL (0.7-1.3); POTASSIUM SERUM 3.7 mmol/L (3.5-5.1)
[2018-12-13 19:30] LABS: PLATELET MORPHOLOGY PLATELETS NORMAL; acanthocyte (spur cell) 1+; rbc morphology (normal/abnorm) ABNORMAL (NORMAL); schistocyte (helmet cell) 1+
--- NOTE | 2018-12-13 19:30 | NUR ---
SPOKE TO DR. WU VIA TELEPHONE. UPDATED ON PT'S STATUS. ALL QUESTIONS/CONCERNS ADDRESSED AT THIS TIME.
--- NOTE | 2018-12-13 20:10 | NUR ---
RECEIVED REPORT FROM APURVA COFFMAN. ASSUMING ALL CARE
--- NOTE | 2018-12-13 22:55 | NUR ---
DR. BURDICK AT BEDSIDE. UPDATED ON PT'S STATUS. PER DR. BURDICK, DC FLAGYL AND MEFOXIN ABX AND ORDER MERREM 1 GRAM Q8H. WILL CARRY OUT ORDER.
--- NOTE | 2018-12-13 23:14 | NUR ---
AXILLARY TEMP 100.1. ICE PACKS APPLIED, COOLING MEASURES IN PLACE. AC TURNED ON. WILL CONT TO MONITOR.
--- NOTE | 2018-12-13 23:43 | NUR ---
VERONICA RT AT BEDSIDE FOR BREATHING TREATMENT
[2018-12-14] VITALS (18 sets, daily range): BP systolic 92–113; BP diastolic 48–74
--- NOTE | 2018-12-14 01:15 | NUR ---
AXILLARY TEMP 99.8. COOLING MEASURES REMAIN IN PLACE. WILL CONT TO MONITOR
--- NOTE | 2018-12-14 05:18 | NUR ---
SUPERVISOR DRYING AND SOFTENING AT BEDSIDE FOR AM LAB DRAW
--- NOTE | 2018-12-14 05:46 | NUR ---
DR. MATTHEWS AT BEDSIDE FOR MSE. UPDATED ON PT'S STATUS. ALL QUESTIONS/CONCERNS ADDRESSED AT THIS TIME.
[2018-12-14 05:51] LABS: BASOPHIL % 0.2 % (0-2); PLATELET COUNT 201 x10^3mcL (130-400)
[2018-12-14 05:53] LABS: RED CELL DISTRIBUTION WIDTH 16.5 % (11.5-14.5)
[2018-12-14 05:58] LABS: CALCIUM 8.8 mg/dL (8.5-10.1); CARBON DIOXIDE 30.8 mmol/L (21-32); CREATININE SERUM 1.5 mg/dL (0.7-1.3); PHOSPHOROUS 2.3 mg/dL (2.5-4.9); POTASSIUM SERUM 3.4 mmol/L (3.5-5.1)
--- NOTE | 2018-12-14 07:05 | NUR ---
REPORT GIVEN TO LAZARO COFFMAN. ALL QUESTIONS CONCERNS ADDRESSED AT THIS TIME. ENDORSING ALL CARE
--- NOTE | 2018-12-14 07:10 | NUR ---
RECIEVED REPORT FROM MEGHNA GODOY TO ASSUME ALL CARES. ALL QUESTIONS AND CONCERNS ADDRESSED.
--- NOTE | 2018-12-14 07:13 | NUR ---
SPOKE TO PT'S AUNT DANUTA VIA TELEPHONE. UPDATED ON PT'S STATUS. ALL QUESTIONS/CONCERNS ADDRESSED AT THIS TIME
--- NOTE | 2018-12-14 08:25 | NUR ---
DR. GARCIA AT BEDSIDE TO ASSESS PATIENT. UPDATES PROVIDED AND POC DISCUSSED. VERSED AND FENTANYL DRIP TURNED OFF FOR C-PAP. PATIENT PLACED ON C-PAP MODE 04/28. PLAN IS TO KEEP PATIENT ON C-PAP FOR AN HOUR AND PUT PATIENT BACK ON FULL SUPPORT. WILL NOTIFY RESPIRATORY THERAPY. WILL CONTINUE TO MONITOR.
--- NOTE | 2018-12-14 08:59 | NUR ---
RECIEVED CALL FROM BROCK FROM THE TRANSFER CENTER AT [facility]. UPDATES ON PATIENT'S STATUS PROVIDED. PER BROCK, WE ARE STILL WAITING FOR AN ACCEPTING DOCTOR. PLAN IS FOR THE [facility] DOCTOR TO CALL DR. WU FOR POTENTIAL ACCEPTANCE. [facility] WILL KEEP US UPDATED.
--- NOTE | 2018-12-14 10:00 | NUR ---
RT VERONICA AT BEDSIDE AND PLACED PATIENT BACK ON FULL SUPPORT. PATIENT TOLERATED C-PAP WELL. WILL CONTINUE TO MONITOR.
--- NOTE | 2018-12-14 11:30 | NUR ---
DR. VAZQUEZ AT BEDSIDE TO ASSESS PATIENT. UPDATES PROVIDED AND POC DISCUSSED. ORDERS TO TITRATE THE D5 DOWN TO 100 ML/HR GIVEN. WILL FOLLOW AND CONTINUE TO MONITOR.
--- NOTE | 2018-12-14 12:18 | NUR ---
PHYSICAL THERAPY NOTE PHYSICAL THERAPY EVAL ORDER DISCHARGED 2/2 CHANGE OF CONDITION.
--- NOTE | 2018-12-14 17:09 | NUR ---
CALERO CARE PROVIDED.
--- NOTE | 2018-12-14 17:39 | NUR ---
RECIEVED CALL FROM [facility] AND SPOKE TO BROCK WHO STATED PT HAS BEEN DECLINED BY 3 PHYSICIANS AT THIS TIME. STATED THAT THE PHYSICIANS MENTIONED THE SURGERY HAS ALREADY BEEN DONE AND THERE IS NO NEED FOR PT TO BE TRANSFERED FOR SURGERY. ALSO, THAT THERE IS NO INDICATION FOR PT TO BE TRANSFERED TO [facility] PT IS CURRENTLY IN ICU AT OUR FACILITY. LIME KILN TENDER AND PRIMARY RN MADE AWARE.
--- NOTE | 2018-12-14 19:20 | NUR ---
REC'D REPORT FROM LAZARO COFFMAN TO ASSUME CARE. PT INTUBATED AND SEDATED ON FENTANYL 1 MCG/KG/HR, VERSED 1 MG/HR WITH RSS 4 PERRLA NOTED. 8.0 ETT SECURED @ 23 CM LL. NO JVD NOTED. TRACHEA MIDLINE. R NARE NG INTACT AND PATENT TO LOW INT SUCTION, NO OUTPUT NOTED. ETT TO VENT: AC MODE RATE 10, TV 600, PEEP 5, FIO2 40%. CHEST RISE EQUAL AND SYMMETRICAL. LUNG SOUNDS CLEAR BUL, DIM BASES. S1 S2 AUSCULTATED. CHEST WALL STABLE. BP 93/57 MAP 69, HR 104. DEMAND PLANNER IN PLACE SHOWING ST. PULSES PALPABLE X4. CAP REFILL < 3 SECS. NO EDEMA NOTED. IVF D5 INFUSING @ 100 ML/HR. SCDS IN PLACE TO BLE. PULSES PALPABLE X4. CAP REFILL < 3 SECS. NO EDEMA NOTED. IVF D5 INFUSING @ 100 ML/HR. SCDS IN PLACE TO BLE. GEN WEAKNESS NOTED. TURNED AND REPOSITIONED Q2H FOR PRESSURE RELIEF. NPO, PPN TO BE INITIATED TONIGHT. ABD ROUND, SOFT, BOWEL SOUNDS HYPOACTIVE. MID ABD INCISION W/ ABD BINDER AND DSG CDI, S/P EX LAP ON 12/13. 2 ADALBERTO DRAIN TO LEFT ABD, MINIMAL AMT DRAINING SEROSANGUINEOUS FLUID, 1 ADALBERTO DRAIN TO R ABD DRAINING MINIMAL AMT SEROSANGUINEOUS FLUID. F/C INTACT AND DRAINING VIA GRAVITY YELLOW URINE. NO SCROTAL EDEMA NOTED. RESTRAINTS OFF AT THIS TIME, PT SLEEPING AND CALM. ALL NEEDS MET AT THIS TIME. WILL CONTINUE TO MONITOR.
--- NOTE | 2018-12-14 20:15 | NUR ---
DR WU CALLED, UPDATED ON STATUS, TELEPHONE ORDER GIVEN 2L D5W BOLUS FOR HYPOTENSION. TELEPHONE ORDER READ BACK. ORDER NOTED AND CARRIED OUT. DR WU STATES WILL FOLLOW UP WITH [facility] FOR [facility] TRANSFER.
--- NOTE | 2018-12-14 20:46 | NUR ---
STEPHANY RT AT BEDSIDE, ADVANCED PTS ETT TO 25 CM @ LL. DR PAK MADE AWARE TO ORDER CXR STAT.
--- NOTE | 2018-12-14 22:45 | NUR ---
D5W 2L BOLUS COMPLETE.
--- NOTE | 2018-12-14 22:53 | NUR ---
TPN INITIATED AT THIS TIME. D5W TITRATED TO 20ML/HR.
[2018-12-15] VITALS (16 sets, daily range): BP systolic 92–126; BP diastolic 54–73
[2018-12-15 04:50] LABS: PLATELET COUNT 178 x10^3mcL (130-400)
[2018-12-15 04:51] LABS: BASOPHIL % 0 % (0-2); RED CELL DISTRIBUTION WIDTH 16.1 % (11.5-14.5)
[2018-12-15 05:04] LABS: CALCIUM 7.9 mg/dL (8.5-10.1); CARBON DIOXIDE 27.1 mmol/L (21-32); CHLORIDE SERUM 117 mmol/L (98-107); CREATININE SERUM 0.9 mg/dL (0.7-1.3); GFR1 > 60 mL/min; GLUCOSE SERUM 242 mg/dL (74-106); MAGNESIUM 2.1 mg/dL (1.8-2.4); PHOSPHOROUS 1.9 mg/dL (2.5-4.9); POTASSIUM SERUM 3.7 mmol/L (3.5-5.1); SODIUM SERUM 150 mmol/L (136-145)
--- NOTE | 2018-12-15 05:12 | NUR ---
ADALBERTO DRAINS EMPTIED: #1) 7.5 ML #2) 10 ML #3) 5 ML = 22.5 ML TOTAL.
--- NOTE | 2018-12-15 07:10 | NUR ---
RECIEVED PT INTUBATED AND SEDATED ON VERSED @ 1MG/HR AND FENTANYL @ 1MCG/KG/HR. RSS = 4. RESPONDS TO VERBAL, TACTILE, AND PAINFUL STIMULUS. PERRL NOTED. NO FACIAL DROOP NOTED. R NARE NGT INTACT AND TO LOW INTERMITTENT SUCTION WITH NO DRAINAGE NOTED. TRACHEA MIDLINE. NO JVD PRESENT. 8.0 ETT @ 25 LL. ETT TO VENT: VCV/AC MODE = 5 PEEP, 10 RATE, 40% FIO2, 600 VT. RESPIRATIONS ARE E/U. SYMMETRICAL CHEST WALL EXPANSION NOTED. NO S/S OF RESP DISTRESS NOTED. NSR ON LEGAL DIRECTOR. +1 PITTING EDEMA NOTED. SKIN IS WARM/DRY TO TOUCH, PINK IN COLOR. PIV TO R AND L HAND AND RFA INTACT, PORTS PATENT, DRESSINGS CDI. D5 INFUSING @ 20 ML/HR AND PPN INFUSING @ 80 ML/HR. S/P EX-LAP ON 12/13 - MID ABD INCISION WITH DRESSING CDI, NO LEAKAGE SEEN FROM SITE, ABD BINDER APPLIED; 1 ADALBERTO DRAIN TO R ABD INTACT WITH SCANT AMOUNT OF SEROUS DRAINAGE NOTED, 2 ADALBERTO DRAINS TO L ABD INTACT WITH SCANT AMOUNT OF SEROUS DRAINAGE NOTED. F/C INTACT AND DRAINING VIA GRAVITY, URINE IS SEAN IN COLOR. NO PENILE BLEEDING OR DISCHARGE NOTED. HX OF ORCHIESTOMY. JOINTS INTACT, NO CONTRACTURES NOTED. SCD TO BLE. HOB ELEVATED TO 30 DEGREES, BED IN LOWEST POSITION, X3 SIDE RAILS UP.
--- NOTE | 2018-12-15 07:10 | NUR ---
RECIEVED REPORT FROM LINH COFFMAN. ALL QUESTIONS AND CONCERNS ADDRESSED. WILL RESUME CARE OF PT.
--- NOTE | 2018-12-15 07:37 | NUR ---
DR. GARCIA CALLED AND STATED FOR THE PT TO DO CPAP TRIALS WITH WEANING PARAMETERS FOR LATER TODAY.
--- NOTE | 2018-12-15 07:51 | NUR ---
RECEIVED CALL FROM DR. GARCIA STATING TO BEGIN WEENING. PROVIDE PATIENT WITH CPAP 12/5, AND ORDER AN ABG ONE HOUR AFTERWARD. COLETTE GALLO MADE AWARE, AND AT BEDSIDE.
--- NOTE | 2018-12-15 07:53 | NUR ---
SEDATION TURNED OFF AT THIS TIME FOR CPAP TRIALS LATER TODAY.
--- NOTE | 2018-12-15 07:57 | NUR ---
COLETTE RT PLACED PATIENT ON CPAP 04/28.
--- NOTE | 2018-12-15 08:08 | NUR ---
PLACED PT ON CPAP OF 12/5 AT THIS TIME. PT TOELRATING CPAP. COVER MAKER AND AIR SHOVEL OPERATOR NOTIFIED.
--- NOTE | 2018-12-15 08:30 | NUR ---
TRIED TO CONTACT PT'S BROTHER (GARETT) IN REGARDS TO BRINGING IN PT'S HEARING AIDS SO THAT THE PT IS ABLE TO FOLLOW COMMANDS FOR CPAP AND WEANING TRIAL. PT'S BROTHER UNABLE TO SENIOR LIVING SALES COUNSELOR CALL. LEFT A VOICEMAIL ON PT'S STATUS AND POC.
--- NOTE | 2018-12-15 10:06 | NUR ---
ATTENDING AND INTERNS AT BEDSIDE FOR ROUNDS. ALL QUESTIONS AND CONCERNS ANSWERED. PLAN IS TO TRY AND GET PATIENT TRANSFERRED OUT. STATES THAT HE WOULD RATHER HAVE PATIENT REMAIN INTUBATED FOR TRANSFER, BUT THAT HE WILL DO WHATEVER DR. GARCIA WANTS TO DO.
--- NOTE | 2018-12-15 10:10 | NUR ---
ATTENDING WILL BE CONSULTING WITH CASE MANAGEMENT TO SEE IF TRANSFERING TO A HIGHER LEVEL OF CARE IS POSSIBLE.
--- NOTE | 2018-12-15 11:51 | NUR ---
1. Recommend continuing current PPN regimen. Consider TPN if PPN is to be continued for >5 days.
--- NOTE | 2018-12-15 11:51 | NUR ---
Follow-up Nutrition Assessment: IC05/1 PAMELA SWEENEY FU HR Dx: Ruptured viscus PMHx: DM type 2, HLD Labs: (12/15): NA 150H, BG 242H, BUN 34H, P 1.9L, WBC 13.9H Meds: D 10%, D50%, humulin, Zofran, heparin Diet: NPO, PPN D10%, AA 4.25% @ 80ml/hr PO Intake: NPO on PPN Weights: (12/09) 88.2 kg,(12/15) 91.2 kg Skin: mid abd incision s/p ex-lap (12/13) Louis: 13 I/Os: (12/15) 3006/2952 (54) Edema: BLE edema +1 pitting GI: S/P ex-lap Last BM: none noted RDN Visit (12/15): Patient is currently intubated and sedated. Per progress note (12/14) There is a large amount of oral contrast layering in a dependent location in the right left upper quadrants suggesting a viscus perforation. There is complex fluid suggestive of hemoperitoneum in the pelvis. then patient underwent Exploratory laparotomy, Evacuation and abdominal peritoneal washout and evacuation of abdominal abscess, Repair of gastrojejunal perforation with primary closure interrupted sutures and omental flap overlay patch, Placement of deep tunnel intraperitoneal drains x 3, Wound culture, Partial omentectomy, and Lysis of adhesions. Spoke with Dr. Riddle regarding plan to continue PPN and possibility of changing it to TPN to meet calorie and protein goal. Dr. Riddle said that he will consult with Dr. Chacon about it and will let me know. Estimated Nutritional Needs based on adjusted body weight 73.5 kg: Energy: 1268-6418 vs 1977 kcal/d (30-32 kcal/kg vs Vasyl State Equation (PSU) 2003b - wound healing) Protein: 88-110 g/d (1.2-1.4 g/kg) - wound healing Fluid: 7215-9974 (1ml/kcal) or per MD Nutrition Diagnosis 1. Increased nutrient needs related to increased metabolic demands as evidenced by presence of mid-abdominal sx wound s/p ex lap and need for TPN for nutrition support. Intervention 1. Recommend continuing current PPN regimen. Consider TPN if PPN is to be continued for >5 days. Monitor/Evaluate Goal: Have pt meet at least 75% of estimated needs Monitor: PO intake, Labs, GI function F/U in 2-3 days as high risk 12/17-
--- NOTE | 2018-12-15 12:25 | NUR ---
PT'S BROTHER (GARETT) CALLED BACK AND HAS STATED THAT HE WILL BRING IN PT'S HEARING AIDS SOON.
--- NOTE | 2018-12-15 13:12 | NUR ---
DR. VAZQUEZ AT BEDSIDE FOR UPDATES. ALL QUESTIONS AND CONCERNS ANSWERED.
--- NOTE | 2018-12-15 13:19 | NUR ---
DR. GARCIA AT BEDSIDE FOR UPDATES. ALL QUESTIONS AND CONCERNS ANSWERED. DR. GARCIA WOULD LIKE TO BEGIN WEENING PARAMETERS, AND WOULD LIKE TO HAVE PATIENT EXTUBATED TODAY OR TOMORROW.
--- NOTE | 2018-12-15 15:00 | NUR ---
PT'S BROTHER AT BEDSIDE WITH HEARING AIDS. COLETTE RT AND RT STUDENT AT BEDSIDE. PT UNABLE TO MEET WEANING PARAMETERS AT THIS TIME D/T LETHARGIC NATURE. WILL TRY AGAIN LATER.
--- NOTE | 2018-12-15 15:30 | NUR ---
DR. WU AT BEDSIDE ASSESSING PT. PER DR. WU, MID ABD DRESSING TO BE REMOVED WELL THE 3 ADALBERTO DRESSINGS TO ASSESS THE SURGICAL SITE. SURGICAL INCISION NOTED TO HAVE NO PURLURENT DRAINIAGE, BLEEDING, OR REDNESS/INFLAMAMTION TO THE SITE AND ALL ROBINA IN PLACE. 2 R ADALBERTO DRAIN DRESSINGS AND L ADALBERTO DRAIN DRESSING REMOVED AND REPLACED. DR. WU SAID TO LEAVE THE MID ABD SURGICAL INCISION INSTRUCTOR CREELER WITH THE ABD BINDER OFF. ONLY PUT ON ABD BINDER IF PT WILL BE SITTING UPWARDS, OTHERWISE LEAVE OFF.
--- NOTE | 2018-12-15 16:03 | NUR ---
PT PLACED BACK ON VCV/AC MODE: 600 VT, 40% FIO2, 10 RATE, 5 PEEP BY COLETTE POWELL
--- NOTE | 2018-12-15 19:10 | NUR ---
RECEIVED GROUP REPORT FROM TRAVIS COFFMAN. WILL RESUME CARE.
--- NOTE | 2018-12-15 19:30 | NUR ---
ORAL CARE PROVIDED, PATIENT REPOSITIONED SUPINE. SEE SHIFT ASSESSMENT.
--- NOTE | 2018-12-15 21:11 | NUR ---
DR. BURDICK AT BEDSIDE ASSESSING PT. UDATES PROVIDED.
--- NOTE | 2018-12-15 22:00 | NUR ---
PATIENT REPOSIITONED ON RIGHT SIDE.
--- NOTE | 2018-12-15 23:46 | NUR ---
ORAL CARE PROVIDED, PATIENT REPOSITIONED ON LEFT SIDE. SEE SHIFT ASSESSMENT.
[2018-12-16] VITALS (13 sets, daily range): BP systolic 103–142; BP diastolic 59–80
--- NOTE | 2018-12-16 02:00 | NUR ---
PATIENT REPOSITIONED SUPINE.
--- NOTE | 2018-12-16 04:00 | NUR ---
PATIENT ASSESSED AT THIS TIME, ORAL CARE AND CALERO CARE PROVIDED. ADALBERTO'S DRAINED, TOTAL OUTPUT 12 MLS SEROSANGUINOUS FLUID. RESPIRATIONS EVEN AND REGULAR. NO SIGNS OF PAIN. CALERO DRAINING YELLOW CLEAR URINE. BED LOCKED AND IN LOWEST POSIITON.
--- NOTE | 2018-12-16 04:21 | NUR ---
RT ANDERSON AT BEDSIDE ASSESSING PT.
--- NOTE | 2018-12-16 04:37 | NUR ---
WOOL CLEANER AT BEDSIDE FOR BLOOD DRAW.
[2018-12-16 04:50] LABS: BASOPHIL % 1.8 % (0-2); PLATELET COUNT 210 x10^3mcL (130-400); RED CELL DISTRIBUTION WIDTH 16.3 % (11.5-14.5)
[2018-12-16 05:00] LABS: CALCIUM 8.3 mg/dL (8.5-10.1); CARBON DIOXIDE 28.1 mmol/L (21-32); CHLORIDE SERUM 117 mmol/L (98-107); CREATININE SERUM 0.7 mg/dL (0.7-1.3); GFR1 > 60 mL/min; GLUCOSE SERUM 213 mg/dL (74-106); MAGNESIUM 2.3 mg/dL (1.8-2.4); PHOSPHOROUS 2.4 mg/dL (2.5-4.9); POTASSIUM SERUM 3.9 mmol/L (3.5-5.1); SODIUM SERUM 151 mmol/L (136-145)
--- NOTE | 2018-12-16 05:00 | NUR ---
PATIENT GIVEN BED BATH, NEW CHUCKS AND GOWN. PATIENT HAD SOFT BROWN BM. REPOSITIONED ON RIGHT SIDE.
[2018-12-16 05:06] LABS: ALBUMIN 1.2 g/dL (3.4-5.0)
--- NOTE | 2018-12-16 05:29 | NUR ---
DR. MATTHEWS AT BEDSIDE ASSESSING PT. UPDATES PROVIDED. NO NEW ORDERS AT THIS TIME.
--- NOTE | 2018-12-16 07:50 | NUR ---
PATIENT REMAINS INTUBATED WITH NO SEDATION. PATIENT RESPONSIVE TO VERBAL STIMULI AND FOLLOWS COUPLE OF VERY SIMPLE COMMANDS. JADE PUPILS WITH SLUGGISH REACTION TO LIGHT. ETT 8.0 IS SECURED TO FACE AND AT 26CM AT LIPLINE. ETT TO VENT VIA VCV/AC MODE: FIO2 40%, RATE 10, VT 600, AND PEEP 5. NGT TO RIGHT NARE AND CONNECTED TO LOW INTERMITTENT SUCTION. TELE # 5 READS TACHYCARDIA. IV SITES TO RIGHT AND LEFT HANDS AND RFA. PPN IS INFUSING AT 80ML/HR. AND D5W AT 20ML/HR. SURGICAL SITE AT MID LINE ABDOMEN WITH ROBINA IN PLACE; NO DISCHARGE NOTED AT THIS TIME. ADALBERTO X2 TO RIGHT ABDOMEN AND ADALBERTO X1 TO LEFT ABDOMEN WITH SCANT AMOUNT OF SEROSANGUINEOUS OUTPUT IN TUBING. CALERO CATH TO GRAVITY DRAINING YELLOW URINE. SCDS TO BLE. CALL LIGHT WITHIN REACH. ISOGEL MATTRESS IN USE. SIDE RAILS UP X3. BED AT LOWEST POSITION AND HEAD OF BED ELEVATED.
--- NOTE | 2018-12-16 07:50 | NUR ---
DR GARCIA AT BEDSIDE TO ASSESS PATIENT. UPDATES PROVIDED BY NURSING.
--- NOTE | 2018-12-16 08:05 | NUR ---
RT ALVARENGA AT BEDSIDE SWITCHING VENT SETTING TO CPAP MODE WITH PEEP 5 AND PSV 10.
--- NOTE | 2018-12-16 08:54 | NUR ---
SCREEN FOR LOW SHELDON SCALE AT RISK PRESSURE ULCER INJURY PREVENTION INTERVENTIONS IN PLACE. -TURN AND REPOSITION PATIENT Q 2H OFFLOAD LEFT AND RIGHT HIPS -ASSESS AND MONITOR SKIN CONDITION DURING POSITION CHANGE -OFFLOAD BILATERAL HEELS BY PLACING PILLOWS UNDER CALVES AT ALL TIMES, UNLESS OTHERWISE CONTRAINDICATED -PRESSURE REDISTRIBUTION SURFACE THERAPY -KEEP SKIN CLEAN AND DRY AT ALL TIMES.
--- NOTE | 2018-12-16 09:30 | NUR ---
DR DELEON AND RESIDENTS AT BEDSIDE FOR AM ROUNDS. PATIENT UPDATE PROVIDED BY NURSING. DR MATTHEWS CONTACTED DR WU REGARDING GASTROGRAFFIN. DR WU INSTRUCTED DR MATTHEWS TO AWAIT RADIOLOGY UNTIL FURTHER INSTRUCTION.
--- NOTE | 2018-12-16 10:25 | NUR ---
COLETTE RT AT BEDSIDE ATTEMPTING TO OBTAIN WEANING PARAMETERS. PATIENT TOO LETHARGIC UNABLE TO STAY AWAKE. PATIENT REMAINS ON CPAP. COLETTE RT WILL ATTEMPT WEANING AGAIN IF PATIENT NOT LETHARGIC.
--- NOTE | 2018-12-16 11:10 | NUR ---
PT HAD 1 SOFT STOOL. PT CLEANED UP, PARTIAL LINEN CHANGE. ABDOMINAL BINDER REAPPLIED.
--- NOTE | 2018-12-16 14:46 | NUR ---
COLETTE GALLO AT BEDSIDE. PATIENT EXTUBATED AND PLACED ON NASAL CANNULA 2LPM WITH SPO2 AT 95%. VITALS BP 123/77, HR 106 RR 18.
--- NOTE | 2018-12-16 15:30 | NUR ---
DR. DIAZ IS AT STATION AND WAS INFORMED THAT THE NGT WAS REMOVED DUE TO RECOILING AFTER EXTUBATION, AND NEW NGT REINSERTED TO RIGHT NARE. NGT CONNECTED TO LOW INTERMITTENT SUCTION AFTER BASED ON KUB RESULT, WHICH READS THE NGT APPEARS TO TERMINATE AT PROXIMAL STOMACH. DOCTOR AGREES TO RESUME LOW INTERMITTENT SUCTION FOR THE PATIENT.
--- NOTE | 2018-12-16 15:30 | NUR ---
NASOGASTRIC TUBE REMOVED DUE TO COILING IN MOUTH AFTER EXTUBATION, NEW NASOGASTRIC TUBE INSERTED INTO RIGHT NARE. WILL ORDER KUB TO CHECK PLACEMENT. AIR BOLUS AUSCULTATED OVER STOMACH REGION.
--- NOTE | 2018-12-16 17:00 | NUR ---
KUB RESULT SHOWS THAT NGT APPEARS TO TERMINATE IN PROXIMAL STOMACH; NGT CONNECTED TO LOW INTERMITTENT SUCTION ORDER BEFORE.
--- NOTE | 2018-12-16 17:30 | NUR ---
DR. DIAZ IS AT STATION AND IS INFORMED THAT THE NGT WAS REMOVED DUE TO COILING IN PATIENT'S MOUTH AFTER EXTUBATION. NEW NGT REINSERTED AND KUB RESULT SHOWS THE NGT TERMINATES IN PROXIMAL STOMACH. NGT CONNECTED TO LOW INTERMITTENT SUCTION. DOCTOR AGREES WITH THAT.
--- NOTE | 2018-12-16 19:00 | NUR ---
CALERO CARE PROVIDED TO THE PATIENT.
--- NOTE | 2018-12-16 19:13 | NUR ---
RECEIVED REPORT FROM BLANQUITA COFFMAN. WILL RESUME CARE.
--- NOTE | 2018-12-16 23:15 | NUR ---
DR. BURDICK AT BEDSIDE ASSESSING PT. UPDATES PROVIDED.
[2018-12-17] VITALS (7 sets, daily range): BP systolic 128–147; BP diastolic 55–73
--- NOTE | 2018-12-17 04:50 | NUR ---
TOWER DIRECTOR AT BEDSIDE FOR BLOOD DRAW.
[2018-12-17 05:21] LABS: PLATELET COUNT 265 x10^3mcL (130-400)
--- NOTE | 2018-12-17 05:24 | NUR ---
DR. MATTHEWS AT BEDSIDE ASSESSING PT. UDATES PROVIDED.
[2018-12-17 05:32] LABS: RED CELL DISTRIBUTION WIDTH 15.9 % (11.5-14.5)
--- NOTE | 2018-12-17 05:40 | NUR ---
ALL LINENS AND GOWN CHANGED. PT HAD LARGE SOFT BM. CALERO CARE PROVIDED. URINE OUTPUT 1300 OF YELLOW URINE. PT REPOSITIONED TO L SIDE AND BONT PROMINENCES OFFLOADED. SCD;S IN PLACE TO BLE.
[2018-12-17 06:03] LABS: CALCIUM 8.5 mg/dL (8.5-10.1); CARBON DIOXIDE 29.2 mmol/L (21-32); CHLORIDE SERUM 117 mmol/L (98-107); CREATININE SERUM 0.8 mg/dL (0.7-1.3); GFR1 > 60 mL/min; GLUCOSE SERUM 190 mg/dL (74-106); MAGNESIUM 2.4 mg/dL (1.8-2.4); POTASSIUM SERUM 3.7 mmol/L (3.5-5.1); SODIUM SERUM 155 mmol/L (136-145)
[2018-12-17 06:06] LABS: BAND NEUTROPHIL 1 % (0-10); MONOCYTE 3 % (0-7); SEGMENTED NEUTROPHILS 89 % (37-75)
[2018-12-17 06:09] LABS: PLATELET MORPHOLOGY PLATELETS NORMAL; acanthocyte (spur cell) 1+; rbc morphology (normal/abnorm) ABNORMAL (NORMAL)
--- NOTE | 2018-12-17 07:10 | NUR ---
GAVE REPORT TO VINOD COFFMAN. ALL QUESTIONS AND CONCERNS ADDRESSED.
--- NOTE | 2018-12-17 07:21 | NUR ---
CXR DONE AT BEDSIDE.
--- NOTE | 2018-12-17 10:00 | NUR ---
PT IS EASILY AROUSED BY AUDITORY STIMULI WITH EYES OPEN, NO VERBAL COMMUNICATION BUT PT ANSWER SIMPLE QUESTION WITH NODDING AND SHAKING HEAD. PHOTO FOR ABD INCISION SITE TAKEN. SCANT DRAINAGE OOZING, SEROSANGUNEOUS. WILL CONTINUE TO MONITOR.
--- NOTE | 2018-12-17 10:00 | NUR ---
DR DELEON AND RESIDENTS ROUNDING AT THIS TIME. PATIENT PROVIDED UPDATES BEDSIDE.
--- NOTE | 2018-12-17 13:02 | NUR ---
BABY NURSE GURPREET HARLEY SEE PT BED SIDE AND ORDER INCREASE D5W TO 100ML/HR.
--- NOTE | 2018-12-17 13:59 | NUR ---
CALLED PT'S BROTHER TONE ([phone]) AND GAVE UPDATE. MADE HIM AWARE PT JUST STARTING TO TALK IN SENTENCE, SLURRED SPEECH.
--- NOTE | 2018-12-17 14:55 | NUR ---
Follow-up Nutrition Assessment: (IC05-1) WAYNE SWEENEYLANDO 53M Dx: Ruptured viscus PMHx: Hx DM Labs: Na 155 H, BG 190 H, BUN 27 H, Alb1.2 L Meds: Humulin, Protonix, Zofran, TPN Diet: NPO exc Meds (Pos op exploratory laparotomy), PPN D10% AA 4.25% @80mL/hr PO Intake: NPO Weights: 202# (12/17) 205# (12/16) 200# (12/15) I/Os: 2847/2862 (12/17) 3001/2945 (12/16) 3006/2952 (12/15) 4244/1700 (12/14) Skin: Midline Abd incision site w/ miki, ADALBERTO x [address] in [address] Louis: 14 Edema: Skin warm to touch, no edema BLE/BUE, pedal pulses moderate palpable GI: Abd mid line incision w/ stapls and ADALBERTO drain (RLQ x 2, LLQ x 1), scant serosanguneous drainage noted, BS hypoactive, no BM at this time Last BM: 12/16, good amount per RD Note (12/17): Pt reviewed during bed huddles, noted pt extubated from vent 12/16, still requires PPN. Visited pt bedside, confirmed PPN D10% AA4.25% running at 80mL/hr. Per previous nutrition note 12/15, RD spoke w/ Dr Riddle regarding plan for PPN, pending Dr Riddle consult w/ Dr Chacon. Spoke w/ Dr. Riddle regarding PPN order, Dr Riddle stated discussed w/ Nephro Dr Galvez, plan to start TPN in 2-3 days via PICC line. Estimated Nutritional Needs Based on adjusted body weight (73.5 kg) Energy: 6484-1818 kcal/day (30-32 kcal/kg for wound healing) Protein: 88-103 g/day (1.2-1.4 g/kg for wound healing) Fluid: 4015-8094 mL/day (1 mL/kcal) or per MD Nutrition Diagnosis: . 12/15: Increased nutrient needs related to increased metabolic demands as evidenced by presence of mid-abdominal sx wound s/p ex lap and need for TPN for nutrtiion support 12/17: Inadequate intake from enteral/parenteral nutrition infusion r/t PPN rate insufficient to meet nutrient needs AEB current PPN provides 52% kcal needs, 93% lower end of Pro needs Intervention: 1. Continue current PPN order. Consider TPN if PPN is to be continued for >5 days. 2. Consider increasing IVF r/t elevated Na. Monitor/Evaluate: Goal: Have pt meet at least 75% of estimated needs Monitor: PPN/TPN, Labs, GI function F/U in 2-3 days as high risk 12/19-12/20
--- NOTE | 2018-12-17 14:55 | NUR ---
Recommendations: 1. Continue current PPN order. Consider TPN if PPN is to be continued for >5 days. 2. Consider increasing IVF r/t elevated Na.
--- NOTE | 2018-12-17 15:37 | NUR ---
PT HAD BIG BM, LOOSE STOOL. PT VERBALLY STATED:"I WANT TO GO HOME", SLURRED SPEECH. DR. ROCHA ASSESSED PT AND AWARE PT'S WBC ELEBATED FROM 13 TO 16 TODAY. PT IS AWAKE, ALERT AND TRYING TO COMMUNICATE. ORAL CARE APPLIED.
--- NOTE | 2018-12-17 15:52 | NUR ---
PHYSICAL THERAPIST AT BED SIDE. PT IS ABLE TO SIT UP WITH ASSIST ON BEDSIDE.
--- NOTE | 2018-12-17 19:10 | NUR ---
PT'S REPORT GIVEN TO RECEIVING NURSE. PT REST ON BED COMFORTABLLY, AROUSABLE VIA AUDITORY STIMULI. NO DISTRESSED AT THIS TIME.
--- NOTE | 2018-12-17 19:30 | NUR ---
REC'D REPORT FROM VINOD RN TO ASSUME CARE. PT A/O X2, SPEECH SLURRED. PT APPEARS LETHARGIC. PUPILS UNEQUAL, LEFT PUPIL 4MM BRISK, RIGHT PUPIL 2MM BRISK. RESPS E/U ON O2 2LPM VIA NC. CHEST RISE EQUAL AND SYMMETRICAL. LUNG SOUNDS CLEAR BUL, DIM BASES. IMPLEMENTATION COORDINATOR IN PLACE SHOWING NSR WITH HR 84. S1 S2 AUSCULTATED. CHEST WALL STABLE. DENIES ANY CP, SYNCOPE, OR DIZZINESS. PULSES PALPABLE X4. CAP REFILL < 3 SECS. NO EDEMA NOTED. IV TO RFA AND RH INTACT AND PATENT. IVF D5W INFUSING @ 100ML/HR. BLE SCDS IN PLACE. PPN INFUSING @ 80ML/HR. NPO EXCEPT MEDS. ABD ROUND AND SOFT. BOWEL SOUNDS HYPOACTIVE. R NARE NGT TO LOW INT SUCTION WITH MINIMAL BLOOD TINGED OUTPUT. F/C INTACT AND PATENT, DRAINING VIA GRAVITY YELLOW URINE. NO PENILE DISCHARGE OR SCROTAL EDEMA NOTED. SKIN WARM DRY TO TOUCH. MEDIAL ABD SURIGICAL INCISION WITH ROBINA INTACT. ABD BINDER IN PLACE. GEN WEAKNESS. TURNED AND REPOSITIONED Q2H FOR PRESSURE RELIEF. ALL NEEDS MET AT THIS TIME. CALL LIGHT WITHIN REACH. WILL CONTINUE TO MONITOR.
--- NOTE | 2018-12-17 20:30 | NUR ---
PTS MOTHER AND BROTHER AT BEDSIDE. UPDATED ON STATUS. ALL QUESTIONS AND CONCERNS ADDRESSED.
--- NOTE | 2018-12-17 22:15 | NUR ---
PT STATING " I WANT TO GO HOME" REPEATING WITH CLEAR SPEECH. WHEN ASKED OTHER QUESTIONS PT UNABLE TO VERBALIZED CLEARLY.
--- NOTE | 2018-12-17 23:00 | NUR ---
PT STS THIRSTY, ORAL CARE PROVIDED WITH RELIEF.
--- NOTE | 2018-12-18 00:48 | NUR ---
PT SEEN SLEEPING COMFORTABLY. NO ACUTE DISTRESS NOTED. NO SOB NOTED, RESPS E/U. WILL CONTINUE TO MONITOR.
[2018-12-18 03:25] VITALS: BP 127/76
[2018-12-18 04:57] LABS: BASOPHIL % 0.1 % (0-2); PLATELET COUNT 286 x10^3mcL (130-400); RED CELL DISTRIBUTION WIDTH 15.8 % (11.5-14.5)
--- NOTE | 2018-12-18 05:00 | NUR ---
TOTAL BED BATH PROVIDED. LINENS CHANGED. NO BM NOTED. PT REPOSITIONED TO COMFORT.
[2018-12-18 05:15] LABS: CALCIUM 8.2 mg/dL (8.5-10.1); CARBON DIOXIDE 28.8 mmol/L (21-32); CHLORIDE SERUM 115 mmol/L (98-107); CREATININE SERUM 0.6 mg/dL (0.7-1.3); GFR1 > 60 mL/min; GLUCOSE SERUM 203 mg/dL (74-106); MAGNESIUM 2.4 mg/dL (1.8-2.4); PHOSPHOROUS 2.8 mg/dL (2.5-4.9); POTASSIUM SERUM 3.6 mmol/L (3.5-5.1); SODIUM SERUM 151 mmol/L (136-145)
--- NOTE | 2018-12-18 07:30 | NUR ---
PT IS AWAKE AND RESPONSIVE VERBALLY BUT SHORT ONE WORD; ABLE TO FOLLOW SIMPLE COMMANDS AND MAINTAIN EYE CONTACT; NO SOB; O2 AT 2L/NC IN USE; DENIES PAIN; SR ON THE MONITOR; ABD BINDER IN PLACE; MIDLINE SURGICAL INCISION ARCHITECTURAL INSPECTOR; NO DRAINAGE; PINK COLOR ALONG THE INCISION; ADALBERTO X1 ON THE LT SIDE OF THE ABD AND JPX2 ON THE RT SIDE OF THE ABDOMEN. ALL 3 JPS NOTED WITH SEROSANGUINOUS DRAIN ON THE TUBE; NGT TO RT NARE; ECCHYMOSIS NOTED ON THE LUE; PPN AT 80 ML/HR INFUSING VIA RH SITE; D5W AT 100 ML/HR INFUSING VIA RAC; BOTH SITES PATENT AND WITHOUT INFILTRATION; FALL AND SAFETY PRECAUTION REINFORCED; WILL CONTIINUE TO MONITOR STATUS.
[2018-12-18 08:00] VITALS: BP 139/73; BP 140/76
--- NOTE | 2018-12-18 09:00 | NUR ---
PHSYICAL THERAPIST IN THE ROOM
--- NOTE | 2018-12-18 09:30 | NUR ---
PT ATTEMPTED TO USE INCENTIVE SPIROMETER BUT CAN BARELY PERFORM DEEP INSPIRATION.
--- NOTE | 2018-12-18 11:19 | NUR ---
DR. DELEON, RESIDENTS, LINER ROLL CHANGER AND PRIMARY RN AT BEDSIDE FOR MORNING ROUNDS. PLAN OF CARE DISCUSSED. WILL CONT TO MONITOR.
--- NOTE | 2018-12-18 12:16 | NUR ---
CALLED AND SPOKE TO PT'S BROTHER-GARETT SWEENEY IN REGARDS TO PICC LINE INSERTION. RISK AND BENEFITS EXPLAINED. GARETT STATED "IF HE NEEDS IT THEN YES I SAY GO AHEAD", CONSENT VERIFED VIA TELEPHONE WITH SECOND RN. SIGNED CONSENT PLACED IN CHART AND PICC LINE NURSE CONTACTED. PRIMARY RN AWARE OF THE ABOVE.
--- NOTE | 2018-12-18 15:30 | NUR ---
PT PULLED HIS NGT; DR. CLOUD AWARE
--- NOTE | 2018-12-18 15:57 | NUR ---
PICC LINE NURSE ROMEO CALLED TO INFORM THAT HE WILL COME AROUND 6-7 PM TONIGHT FOR THE INSERTION.
[2018-12-18 16:30] VITALS: BP 122/61
--- NOTE | 2018-12-18 16:36 | NUR ---
13F NGT INSERTED TO RIGHT NARE, AIR BOLUS GIVEN AND ALSCULTATED BY SECOND RN. PT TOLERATED WELL. KUB ORDERED FOR VERIFICATION.
--- NOTE | 2018-12-18 17:11 | NUR ---
VISITORS X2 IN THE ROOM
--- NOTE | 2018-12-18 18:25 | NUR ---
PICC [employer] CONTACTED FOR THIRD TIME IN REGARDS TO PICC LINE NURSE COMING TO PLACE PICC LINE ON PT. PREVIOUSLY WE WERE TOLD PICC LINE NURSE ROMEO WAS HELD UP AT ANOTHER FACILITY. DURING THE LAST ATTEMPT TO REACH PICC LINE RN THERE WAS NO ANSWER AND A MESSAGE WAS LEFT.
--- NOTE | 2018-12-18 18:45 | NUR ---
DR. WU CALLED TO INQUIRE ABOUT PT'S STATUS. HE WAS INFORMED THAT PT PULLED NGT AND WAS REISERTED AFTER INFORMING DR. LYMAN WHO SAID THAT PT NEEDS THE NGT. DR. WU GAVE TEL ORDERS FOR STAT GASTROGRAPHIN SWALLOW UGI (DO NOT PUSH CONTRAST; LET IT POUR DOWN) AND IF UNABLE TO DO GASTROGRAPHIN, ORDER FOR STAT CT WITH ORAL CONTRAST (LET IT DRIP AND NOT PUSH); HE ALSO ORDERED TO TRANSFER PT TO HIGHER LEVEL OF CARE DUE TO INCREASING WBC AND HAVE THE ENVIRONMENTAL ENGINEERING INTERN START THE PROCESS AGAIN. TO CALL DR. WU FOR THE RESULTS OF GASTROGRAPHIN OR CT. MEGHNA VENTURA STRADDLE BUG IS AWARE OF ABOVE; REPORT GIVEN TO NEXT SHIFT RN.
--- NOTE | 2018-12-18 19:20 | NUR ---
PT RECEIVED AWAKE AND ALERT, ABLE TO FOLLOW SIMPLE COMMANDS, GARBLED SPEECH NOTED. NSR, HR-82, NO S/S OF CP/PRESSURE OBSERVED. NGt IN PLACE TO RT NARE, CLAMPED. SHOALWATER JADE EARS WITH HEARING AIDS IN PLACE. PULSES PALPABLE, EDEMA TO BUE. LUNG SOUNDS DIM TO JADE BASES, BREATHING IS EVEN AND UNLABORED ON 2L NC, NO RESP DISTRESS NOTED. ABD SOFT AND NONDISTENDED, BOWEL TONES HYPOACTIVE X4 QUAD, NO N/V PRESENT. MIDLINE ABD INCISION WITH ROBINA IN PLACE, SITE FREE FROM REDNESS OR SWELLING. ADALBERTO DRAIN #1 TO LT ABD, ADALBERTO DRAIN #2 AND #[address] TO RT ABD, ALL DRAINS CLAMPED TO SUCTION. CALERO CATH DRAINING TO GRAVITY, YELLOW URINE NOTED. GENERALIZED WEAKNESS. IVF INFUSING WELL TO RAC, PPN INFUSING WELL AT 80 ML/HR TO RH, SITES FREE FROM REDNESS OR SWELLING. NO ACUTE DISTRESS NOTED. BED IN LOWEST SETTING, SIDE RAILS UP X2, CALL LIGHT WITHIN REACH. WILL CONT TO MONITOR.
[2018-12-18 20:01] VITALS: BP 119/60
--- NOTE | 2018-12-18 20:45 | NUR ---
PICC LINE NURSE-ROMEO AT BEDSIDE FOR PICC LINE INSERTION. PT IN NO ACUTE DISTRESS. WILL CONT TO MONITOR.
--- NOTE | 2018-12-18 21:42 | NUR ---
PT IN NO ACUTE DISTRESS. CONTINUITY OF CARE ENDORSED TO MEGHNA BAKER. ALL QUESTIONS AND CONCERNS ADDRESSED.
--- NOTE | 2018-12-18 22:45 | NUR ---
PROMOTION SPECIALIST AT BEDSIDE TO ASSIST IN TRANSFERRING PATIENT TO CT SCAN, PT ATTACHED TO FULL KITCHEN AND COUNTER WORKER PORTABLE AND CONTINUOUS PULSE OXIMETRY.
[2018-12-18 23:10] VITALS: BP 136/78
--- NOTE | 2018-12-18 23:10 | NUR ---
PT TRANSFERRED BACK TO ICU BED 5 IN NO ACUTE DISTRESS, PT TOLERATED PROCEDURE. PT ATTACHED BACK TO FULL BILINGUAL RESEARCH INTERVIEWER AND CONTINUOUS PULSE OXIMETRY.
--- NOTE | 2018-12-19 00:55 | NUR ---
INFORMED DR. WU OF PT'S RESULTS OF CT ABD WITH ORAL CONTRAST VIA TELEPHONE. NO NEW ORDERS AT THIS TIME PER DR. WU. WILL CONT TO MONITOR.
--- NOTE | 2018-12-19 02:10 | NUR ---
RT ALVARENGA AT BEDSIDE FOR BREATHING TREATMENT.
[2018-12-19 03:10] VITALS: BP 133/68
[2018-12-19 05:23] LABS: PLATELET COUNT 342 x10^3mcL (130-400)
[2018-12-19 05:25] LABS: RED CELL DISTRIBUTION WIDTH 16.3 % (11.5-14.5)
[2018-12-19 05:41] LABS: CALCIUM 8.2 mg/dL (8.5-10.1); CARBON DIOXIDE 24.7 mmol/L (21-32); CHLORIDE SERUM 102 mmol/L (98-107); CREATININE SERUM 0.7 mg/dL (0.7-1.3); GFR1 > 60 mL/min; MAGNESIUM 2.6 mg/dL (1.8-2.4); PHOSPHOROUS 7.7 mg/dL (2.5-4.9); SODIUM SERUM 133 mmol/L (136-145)
--- NOTE | 2018-12-19 05:45 | NUR ---
VASOPRESSIN TITRATED TO 0.03 UNITS/MIN. ARTERIAL LINE MAP=69.
[2018-12-19 05:50] LABS: GLUCOSE SERUM 713 mg/dL (74-106); POTASSIUM SERUM 6.4 mmol/L (3.5-5.1)
--- NOTE | 2018-12-19 06:25 | NUR ---
HOUSING LIAISON AT BEDSIDE FOR CHEST XRAY.
--- NOTE | 2018-12-19 06:54 | NUR ---
FLAKER OPERATOR AT BEDSIDE FOR LAB REDRAW.
--- NOTE | 2018-12-19 07:09 | NUR ---
GAVE REPORT TO LAZARO COFFMAN AND MEGHNA JUARES. UPDATES GIVEN, QUESTIONS ANSWERED.
--- NOTE | 2018-12-19 07:20 | NUR ---
PT EDUCATED ON INCENTIVE SPIROMETER USE, DEMONSTRATED CORRECT USE, AND VERBALIZED UNDERSTANDING OF PURPOSE AND FREQUENCY OF USE. PT INSPIRED 500ML. WILL CONTINUE TO OBSERVE USE OF IS AND MONITOR INSPIRATION VOLUME.
[2018-12-19 07:39] LABS: ALKALINE PHOSPHATASE 62 U/L (46-116); ALT/SGPT 44 U/L (16-63); AST/SGOT 56 U/L (15-37); BILIRUBIN TOTAL 0.33 mg/dL (0.20-1.00); CALCIUM 8.1 mg/dL (8.5-10.1); CARBON DIOXIDE 26.1 mmol/L (21-32); CHLORIDE SERUM 110 mmol/L (98-107); CREATININE SERUM 0.7 mg/dL (0.7-1.3); GFR1 > 60 mL/min; GLUCOSE SERUM 219 mg/dL (74-106); POTASSIUM SERUM 3.7 mmol/L (3.5-5.1); SODIUM SERUM 144 mmol/L (136-145)
[2018-12-19 08:00] VITALS: BP 137/69
[2018-12-19 08:01] LABS: ALBUMIN 1.2 g/dL (3.4-5.0); TOTAL PROTEIN, SERUM 5.3 g/dL (6.4-8.2)
--- NOTE | 2018-12-19 10:00 | NUR ---
PT STATED THAT RIGHT HAND AND RIGHT FOREARM IV SITES WERE PAINFUL. RN ATTEMPTED TO FLUSH BOTH IV'S AND NEITHER FLUSHED, BOTH CAUSED PT PAIN. RIGHT HAND AND RIGHT PIV WERE REMOVED. CATHETER TIPS WERE INTACT.
--- NOTE | 2018-12-19 10:28 | NUR ---
PATIENT ROUNDS WITH DR. DELEON AND RESIDENTS. CHARGE NURSE AND PRIMARY NURSE AT BEDSIDE. UPDATES PROVIDED AND POC DISCUSSED. WILL CONTINUE TO MONITOR.
--- NOTE | 2018-12-19 11:27 | NUR ---
PT ASSISTED TO CHAIR BY NURSING.
--- NOTE | 2018-12-19 12:00 | NUR ---
PT ACHIEVED 600 ML INSPIRATION VOLUME ON INCENTIVE SPIROMETER, DEMONSTRATED PROPER USE.
--- NOTE | 2018-12-19 13:36 | NUR ---
Follow-up Nutrition Assessment-: [facility] ICU-5 Dx: Ruptured viscus Labs:(12/19) BH, BUN:21H, CA:8.1L, AST:56H, WBC:15.2H, H/H:11.4/35L Meds: D10% , Diflucan, Humulin, Merrem IV, Protonix, Tylenol, Zofran, Heparin Current Nutrition Support: PPN D:10% AA:4.25% at 80ml/hr PPN intake: (12/15)469ml (12/16)937ml (12/17)896ml I/O: (12/17) 3001/2952 (+56ml)(12/18)2847/2862 (-15ml) ()3706/2360(+1076ml) Weights: (12/17) 202#,92kg (12/19) 98.6kg. weight increase possiby due to equipment on bed and +fluid balance. Skin: midline abd incision with miki BIOFUELS ENGINEERING MANAGER. 2 ADALBERTO drains on RL abd and LL abd with serosanguinous output Edema: trace to BLE Last BM: 12/19 Per progress note 12/19, pt will likely need TPN with PICC placement. During visit, pt was seen +trachea and PPN running at 80ml/hr. Per charge poster, pt had PICC line placed yesterday and is finishing up PPN bag then will start TPN. Estimated Nutritional Needs based on adjusted body weight:73.5kg Energy: 2205-2352kcal/day (30-32kcal/kg for wound healing) Protein: 88-103g/day (1.2-1.4g/kg for wound healing) Fluid: 2205-2352ml/day (1ml/kcal) or per doctor Nutrition Diagnosis 1. Increased nutrient needs related to increased metabolic demands as evidenced by presence of mid-abdomnal sx wound s/p ex-lap and need for TPN for nutrtion support (ongoing) 2. Inadequate intake from enteral/parenteral nutrition infusion r/t PPN rate insufficient to meet nutrient needs AEB current PPN provides 52% kcal needs and 93% lower end protein needs (ongoing) Intervention 1. Once PPN is finished, recommned TPN D:25% AA:5%at 85ml/hr to provide 2142kcal, 102g protein and 2040 total volume. GIR:4.01mg/kg/min. This meets 97% caloric needs and 100% protein needs. 2. Monitor BG and electrolytes. Monitor/Evaluate Previous goal: PPN intake at least 75% of estimated needs (not met) Goal: TPN intake at least 75% of estimated needs Monitor: TPN intake/tolerance, Labs, GI function and weights F/U in 2-3 days as high risk: 12/22-12/24
--- NOTE | 2018-12-19 13:39 | NUR ---
1. Once PPN is finished, recommned TPN D:25% AA:5%at 85ml/hr to provide 2142kcal, 102g protein and 2040 total volume. GIR:4.01mg/kg/min. This meets 97% caloric needs and 100% protein needs. 2. Monitor BG and electrolytes.
[2018-12-19 15:01] VITALS: BP 119/71
[2018-12-19 16:00] VITALS: BP 113/69
--- NOTE | 2018-12-19 16:00 | NUR ---
PT ACHIEVED 750 ML INSPIRATION ON INCENTIVE SPIROMETER, PT DEMONSTRATED PROPER USE.
[2018-12-19 19:15] VITALS: BP 126/60
--- NOTE | 2018-12-19 19:15 | NUR ---
RECEIVED PT FROM MEGHNA JUARES. SEE NURSE ASSESSMENT FOR MORE DETAILS. RECEIVED PT AWAKE/ALERT, PT ATTACHED TO FULL GENERATOR MECHANIC AND CONTINUOUS PULSE OXIMETRY. HOB ELEVATED 30 DEGREES. CALL LIGHT WITHIN REACH. PT IN NO ACUTE DISTRESS, NASAL CANNULA @ 1.5 L, BREATHING E/U, DENIES SOB.
--- NOTE | 2018-12-19 19:16 | NUR ---
PT INHALED 750 ML OF INCENTIVE SPIROMETRY. ENCOURAGED TO HIT 1000 ML.
[2018-12-19 23:38] VITALS: BP 107/61
--- NOTE | 2018-12-20 02:27 | NUR ---
PT REPORTING 7/10 PAIN TO ABD AND INCISION SITE. PT MEDICATED WITH DILAUDID PER EMAR.
[2018-12-20 03:32] VITALS: BP 123/64
--- NOTE | 2018-12-20 05:20 | NUR ---
NEW DRESSING APPLIED TO PT'S ADALBERTO DRAINS, SITE SHOWS NO DRAINAGE, AND DRESSING CDI. NON ADHERENT APPLIED TO PT'S MID ABD INSCISION, SITE SHOWS NO DRAINAGE AND NO S/S OF ANY BLEEDING, DRESSING CDI.
[2018-12-20 05:45] LABS: BASOPHIL % 0.1 % (0-2)
[2018-12-20 05:48] LABS: PLATELET COUNT 407 x10^3mcL (130-400); RED CELL DISTRIBUTION WIDTH 15.6 % (11.5-14.5)
[2018-12-20 06:15] LABS: CALCIUM 8.1 mg/dL (8.5-10.1); CARBON DIOXIDE 28.8 mmol/L (21-32); CHLORIDE SERUM 105 mmol/L (98-107); CREATININE SERUM 0.7 mg/dL (0.7-1.3); GFR1 > 60 mL/min; GLUCOSE SERUM 258 mg/dL (74-106); MAGNESIUM 2.2 mg/dL (1.8-2.4); POTASSIUM SERUM 3.9 mmol/L (3.5-5.1); SODIUM SERUM 140 mmol/L (136-145)
--- NOTE | 2018-12-20 07:21 | NUR ---
GAVE REPORT TO MEGHNA SERRANO REGISTRY. UPDATES GIVEN, QUESTIONS ANSWERED.
--- NOTE | 2018-12-20 09:45 | NUR ---
DR DELEON AND RESIDENTS ON UNIT FOR ROUNDS. UPDATES PROVIDED. PLAN TO DOWNGRADE W/ OK FROM DR WU AND TO BLADDER TRAIN FOR REMOVAL OF CALERO.
[2018-12-20 09:54] VITALS: BP 118/58; BP 118/59
--- NOTE | 2018-12-20 13:10 | NUR ---
pt recieved awake and alert/follows commands/afebrile and in no distress/pt tolerating room air but seems to perhaps have sleep apnea as o2 sat drops to 80s occasionally while he sleep//pt abd soft with dressing dry and intact and pt bowel sounds are present all quads//pt v/s stable/pt hard of hearing but has hearing aid present//pt says he passes gas but still npo for now/and pt is is hungry/bs stable, will discuss the diet situation with md once rounds are made/mw
--- NOTE | 2018-12-20 13:51 | NUR ---
C/O 12/01 SHARP ABD PAIN FOLLOWING PHYSICAL THERAPY. MEDICATED PRN, SEE MAR.
--- NOTE | 2018-12-20 14:07 | NUR ---
PT IS IN ZERO DISTRESS/V/S STABLE, PT C/OCCASIONAL ABD PAIN BUT AFEBRILE AND V/S STABLE//PT REPOSITIONS SELF IN BED/PT ABD DRESSING DRY AND INTACT//MW
--- NOTE | 2018-12-20 14:08 | NUR ---
RECEIVED UPDATE FROM DR MATTHEWS. PLAN TO OBSERVE PT IN ICU FOR ONE MORE DAY ACCORDING TO DR WU.
[2018-12-20 14:45] VITALS: BP 117/76; BP 123/55
--- NOTE | 2018-12-20 14:45 | NUR ---
PHYSICAL THERAPY DAILY NOTES CO-SIGN All documentation done by the Restaurant Shift Supervisor for 12/20/18 has been reviewed. I agree with the documentation. Reviewed/Co-Signed by: Tina Dodd PT Documentation Done by:KIAH NGUYỄN PTA FOR 12/18/18
--- NOTE | 2018-12-20 18:45 | NUR ---
PT ASKED TO CALL HIS BROTHER TO BRING HIS PHONE/BROTHER SAID WILL DROP OFF TONIGHT/PT IN ZERO DISTRESS/VS STABLE//PT URINE OUTPUT GOOD PT HAS NO PAIN/RESTING QUIETLY IN BED//MW
--- NOTE | 2018-12-20 19:00 | NUR ---
RECIEVED REPORT FROM MEGHNA SERRANO. ALL CONCERNS ADDRESS. POC DISCUSSED. RESUMED CARE OF PT. SEE SHIFT ASSESSMENT.
[2018-12-20 19:43] VITALS: BP 116/54
--- NOTE | 2018-12-20 20:00 | NUR ---
PT FAMILY @ BEDSIDE.
--- NOTE | 2018-12-20 22:12 | NUR ---
PT W/ REPORTED ABD PAIN 12/01. ADMIN PRN DILAUDID *(SEE MAR)*. WILL REASSESS.
--- NOTE | 2018-12-20 22:31 | NUR ---
RECIEVED REPORT FROM MEGHNA SERRANO. ALL CONCERNS ADDRESSED. POC DISCUSSED. SEE SHIFT ASSESSMENT.
--- NOTE | 2018-12-20 22:40 | NUR ---
PT REPORTED RELIEF FROM ABD PAIN. PAIN LEVEL 1/10. WILL CONT TO MONITOR.
[2018-12-20 23:39] VITALS: BP 104/54
--- NOTE | 2018-12-21 02:55 | NUR ---
PT REPORTED PAIN OF 12/01. ADM PRN DILAUDID *(SEE MAR)*. WILL REASSESS.
[2018-12-21 03:02] VITALS: BP 111/48
--- NOTE | 2018-12-21 04:30 | NUR ---
PT CLEANED AND LINENS CHANGED. PT W/ NO COMPLAINTS OF PAIN UPON TURNING. ADALBERTO DRAINS W/ MINIMAL SEROSANGUINOUS DRAINAGE.
[2018-12-21 05:57] LABS: ALBUMIN 1.4 g/dL (3.4-5.0); CALCIUM 8.3 mg/dL (8.5-10.1); CARBON DIOXIDE 29.3 mmol/L (21-32); CHLORIDE SERUM 104 mmol/L (98-107); CREATININE SERUM 0.7 mg/dL (0.7-1.3); GFR1 > 60 mL/min; GLUCOSE SERUM 266 mg/dL (74-106); MAGNESIUM 2.2 mg/dL (1.8-2.4); PHOSPHOROUS 2.4 mg/dL (2.5-4.9); SODIUM SERUM 140 mmol/L (136-145)
[2018-12-21 06:05] LABS: BASOPHIL % 0 % (0-2); PLATELET COUNT 445 x10^3mcL (130-400); RED CELL DISTRIBUTION WIDTH 16.1 % (11.5-14.5)
[2018-12-21 07:30] VITALS: BP 110/56
--- NOTE | 2018-12-21 07:30 | NUR ---
PT RESTING IN BED WITH NO APPARENT SIGNS OF DISTRESS. PT AWAKE AND ALERT. A/A/O/X3. PT DENIES LAKE/DIZZINESS. [place], BILAT HEARING AIDS NOTED. NGT NOTED TO RIGHT NARE, SECURED IN PLACE. RESPIRATIONS E/U. ON RA, DENIES SOB. NO RESP DISTRESS NOTED. NSR ON MONITOR. PT DENIES CP. PALP PULSES TO ALL EXTREMITIES. MEDIAL ABDOMINAL INCISION WITH ROBINA, DOCK WORKER. RUE PICC WITH DRESSING CDI, PORTS PATENT. INFUSING TPN @80. F/C SECURED IN PLACE DRAINING TO GRAVITY. BED IN LOWEST POSITION. CALL LIGHT IN REACH. WILL CONT TO MONITOR
--- NOTE | 2018-12-21 07:37 | NUR ---
DR WU PRESENT AT BEDSIDE WITH PT AT THIS TIME DISCUSSING POC
--- NOTE | 2018-12-21 08:21 | NUR ---
PT BEDSIDE AT THIS TIME WORKING WITH PATIENT
--- NOTE | 2018-12-21 09:40 | NUR ---
PT C/O OF ABDOMINAL PAIN 11/01, REQUESTING PAIN MEDICATION AT THIS TIME. MEDICATED PER EMAR
[2018-12-21 10:30] VITALS: BP 135/63
[2018-12-21 11:30] VITALS: BP 134/62
--- NOTE | 2018-12-21 12:15 | NUR ---
DR AGRCIA AT BEDSIDE TO DISCUSSING CURRENT POC
--- NOTE | 2018-12-21 12:56 | NUR ---
PT TAKEN TO RADIOLOGY FOR SWALLOW STUDY AT THIS TIME.
--- NOTE | 2018-12-21 13:12 | NUR ---
Follow-up Nutrition Assessment: IC05/ PAMELA SWEENEY FU HR Dx: Ruptured viscus PMHx: DM type 2, HLD Labs: (12/21): BG 266H, P 2.4L, WBC 16.5H, ALB 1.4L Meds: D 10%, D50%, humulin, Zofran, heparin, TPN W/regular insulin 20 units/ bag Diet: NPO, TPN D25%, AA 4.25% @ 80ml/hr PO Intake: NPO on TPN Weights in kg: (12/15) 91.2, (12/18) 92.5, (12/19) 90.8, (12/20) 92.9, (12/21 93 Skin: mid abd incision s/p ex-lap (12/13), ADALBERTO drain, ecchymosis to ankles Louis: 14 I/Os: (12/21) 5010/5590 (-580) Edema: trace BUE edema GI: S/P ex-lap Last BM: none noted RDN Visit (12/21): Patient was sleeping. Per RN, patient will have gastrografin test today, of there is no leakage, clear liquid diet will be initiated. Patient is currently on TPN D25%, AA 4.25% @ 80ml/hr. PICC line placed by the nurse (Jeancarlos), TPN started 12/19/18 at 9:00pm (per progress note (12/21). Patient to be transferred to telemetry. Estimated Nutritional Needs based on adjusted body weight 73.5 kg: Energy: 9598-8836 (30-32 kcal/kg - wound healing) Protein: 88-110 g/d (1.2-1.4 g/kg) - wound healing Fluid: 2869-6329 (1ml/kcal) or per MD Nutrition Diagnosis 1. Increased nutrient needs related to increased metabolic demands as evidenced by presence of mid-abdominal sx wound s/p ex lap and need for TPN for nutrition support. 2. Inadequate parenteral nutrition infusion related to low feeding rate as evidenced by current feeding rate not meeting estimated calorie and protein needs. Intervention 1. Recommend increasing TPN D25%, AA 4.25% @ 85ml/hr to provide 2142 kcal, 102g protein and 2040 total volume. GIR 4.01 mg/kg/min. This meet 97% caloric and 100% protein needs. 2. Monitor BG and electrolytes. Monitor/Evaluate Goal: Have pt meet at least 75% of estimated needs Monitor: TPN intake, Labs, GI function F/U in 2-3 days as high risk 12/23-
--- NOTE | 2018-12-21 13:30 | NUR ---
SPOKE WITH DR MATTHEWS AND REPORTED RESULTS OF UGI/GASTROGRAFFIN. AWAITING NEW ORDERS.
--- NOTE | 2018-12-21 17:00 | NUR ---
PT HAD MOD LOOSE BM AT THIS TIME. PT CLEANED AND LINEN CHANGED. CALERO CARE PROVIDED AT THIS TIME. WILL CONT TO MONITOR
--- NOTE | 2018-12-21 18:35 | NUR ---
REPORT GIVEN TO EM COFFMAN. ALL QUESTIONS AND CONCERNS ADDRESSED. PATIENT BEING TRANSFERRED TO ROOM 205A. PATIENT MOVED FROM ICU BED TO TELE BED WITHOUT INCIDENT. PATIENT'S MOTHER AWARE OF TRANSFER. PATIENT TRANSFERRED WITH ALL BELONGINGS.
--- NOTE | 2018-12-21 18:59 | NUR ---
RECEIVED PT FROM ICU. STABLE. DENIES PAIN. PICC LINE TO RAC. NO DISTRESS NOTED. IVF NS AND IVPB DIFULCAN CONNECTED AND CONTINUING. GAVE REPORT TO NIGHT ORDER SELECTOR NURSE.
--- NOTE | 2018-12-21 19:20 | NUR ---
RECEIVED REPORT FROM DAY SHIFT RN, ALL QUESTIONS AND CONCERNS ADDRESSED. PT IN RM 205 BED A RESTING HIGH FOWLERS POSISTION. PT IS A/O X4, SPEECH IS CLEAR AND FOLLOWS COMMANDS. EYES OPEN SPONTANEOUSLY AND PUPILS REACT BRISK TO LIGHT. CHEST RISE AND FALL EQUAL AND UNLABORED. LS CLEAR. PT HAS MID ABD INCISION SITE, SUTURED AND OPEN TO AIR FROM EX LAP. PT ALSO HAS 3 ADALBERTO-DRAINS, 2 TO THE RLQ AND 1 LLQ, ALL PATENT AND SECURE. VS STABLE. NO SIGNS OR COMPLAINTS OF ACUTE DISTRESS. BED LEFT IN THE LOWEST POSITION AND CALL LIGHT WITH IN REACH.
[2018-12-21 20:58] VITALS: BP 116/64
--- NOTE | 2018-12-21 22:12 | NUR ---
PT HAD MODERATE SIZE BM, BROWN AND FORM, PT CLEAN BY POWER PLANT MANAGER
--- NOTE | 2018-12-22 07:45 | NUR ---
ALERT AND ORIENTED. BREATHING FREELY ON RA. ENCOURAGED TO USE I.S. DENIES ANY PAIN. TELE # 8 NSR. ABD SURGICAL INCISION WITH ROBINA FOURCHETTE SEWER. STAPLE SITES PINK. SM AMT DRIED BLOOD NOTED AT STAPLE SITES. NO DRAINAGE. 3 ADALBERTO DRAINS NO FLUID IN BULBS. URINAL AT BEDSIDE. CLEAR LIQUID TOLERATED. CALL LIGHT WITHIN REACH.
[2018-12-22 08:02] VITALS: BP 116/69
[2018-12-22 08:05] LABS: BASOPHIL % 0.6 % (0-2)
[2018-12-22 08:08] LABS: PLATELET COUNT 450 x10^3mcL (130-400)
[2018-12-22 08:18] LABS: CALCIUM 8.7 mg/dL (8.5-10.1); CHLORIDE SERUM 105 mmol/L (98-107); CREATININE SERUM 0.8 mg/dL (0.7-1.3); GFR1 > 60 mL/min; GLUCOSE SERUM 147 mg/dL (74-106); POTASSIUM SERUM 4.7 mmol/L (3.5-5.1); SODIUM SERUM 139 mmol/L (136-145)
--- NOTE | 2018-12-22 12:00 | NUR ---
REPOSITIONED WITH ASSIST.
[2018-12-22 12:17] VITALS: BP 124/68
--- NOTE | 2018-12-22 13:44 | NUR ---
Marjan WS IN TO SEE PT. GOT PT UP TO EDGE OF BED.
--- NOTE | 2018-12-22 15:52 | NUR ---
CHANGED LINENS AND GOWN. LENORA WIPES BATH FOR PICC LINE. CLEANSED ADALBERTO DRAIN SITES X 3 W NS AND RECOVERED WITH GAUZE DRESSING. WIPED VERTICAL ABD INCISION/ROBINA W/ NS DOAKED GAUZE. LEFT NARCISA. CHANGED PICC LINE DRESSING USING STERILE TECHNIQUE. REPOSITIONED. CALL LIGHT WITHIN REACH.
[2018-12-22 17:04] VITALS: BP 112/67
--- NOTE | 2018-12-22 18:52 | NUR ---
SLEEPING AT THIS TIME. POOR APPETITE WITH DINNER. FULL LIQUID DIET. DILAUDID ADMIN X 1 THIS SHIFT. ADALBERTO DRAINS X 3 VERY LITTLE OUTPUT. 6ML TOTAL 3 ADALBERTO DRAINS. PICC TO RT UPPER ARM BOTH PORTS PATENT. VSS. ABD INCISION SHIP YARD ELECTRICAL PERSON. CALL LIGHT WITHIN REACH,
--- NOTE | 2018-12-22 19:20 | NUR ---
REC'D PT FROM DAY NURSE. PT RESTING IN BED. AAOX4, SPEECH CLEAR, FOLLOWS COMMANDS. PT [place], HEARING AIDS IN PLACE. TELE 8. DENIES CP, DIZZINESS, OR PALPITATIONS. DENIES RESP DISTRESS OR SOB. BREATHING EVEN/UNLABORED ON RA. IS ENCOURAGED AND DEMONSTRATED. NO EDEMA NOTED. ABD SOFT/ROUND. DENIES ABD PAIN, TENDERNESS, OR N/V. S/P EXP LAP X2, MOST RECENT 12/13. LONG LINEAR SX INCISION WITH ROBINA TO MID ABD. ADALBERTO X2 TO R ABD AND ADALBERTO X1 TO L ABD. ALL DRAINING LIGHT ORANGE FLUID. DRESSINGS TO JPS CDI. LAST BM TODAY, LOOSE. PICC TO VIRGILIO, BOTH PORTS FLUSHED AND PATENT. VOIDING FREELY USING URINAL. GENERALIZED WEAKNESS. UP WITH PT. CALL LIGHT WITHIN REACH, BED AT LOWEST POSITION. WILL CONTINUE TO MONITOR.
[2018-12-22 22:21] VITALS: BP 120/79
--- NOTE | 2018-12-23 01:15 | NUR ---
PT RESTING IN BED WITH EYES CLOSED. NO SIGNS OF DISTRESS NOTED. BREATHING EVEN/UNLABORED ON RA. CALL LIGHT WITHIN REACH, BED AT LOWEST POSITION. WILL CONTINUE TO MONITOR.
--- NOTE | 2018-12-23 04:40 | NUR ---
PT C/O 4-5 SHARP ABD PAIN TO INCISION SITE. ONLY DILAUDID AVAILABLE. DR. PAK MADE AWARE AND REQUESTED NORCO. GIVEN PER ORDER. ROBINA TO INCISION CDI. NOTED MINIMAL SEROSANGUINEOUS FLUID TO UMBULICUS- ENOUGH TO SATURATE ONE COTTON TIPPED APPLICATOR. PER PT, SURGEON WANTS THE SITE ARC AND GAS WELDER. JPS DRAINED- 3 ML ORANGE FLUID FROM L ABD, 2 ML CLEAR YELLOW FLUID TO RLQ (SUPERIOR), AND 3 ML ORANGE FLUID FROM RLQ (INFERIOR). TOTAL OF 8 ML FROM ADALBERTO DRAIN. DRESSINGS TO ADALBERTO CDI. NO SIGNIFICANT CHANGES DURING SHIFT. CALL LIGHT WITHIN REACH, BED AT LOWEST POSITION.
[2018-12-23 05:42] VITALS: BP 135/66
[2018-12-23 06:20] LABS: BASOPHIL % 0.3 % (0-2)
[2018-12-23 06:38] LABS: CALCIUM 7.5 mg/dL (8.5-10.1); CARBON DIOXIDE 26.9 mmol/L (21-32); CHLORIDE SERUM 108 mmol/L (98-107); CREATININE SERUM 0.6 mg/dL (0.7-1.3); GFR1 > 60 mL/min; GLUCOSE SERUM 142 mg/dL (74-106); POTASSIUM SERUM 4.2 mmol/L (3.5-5.1); SODIUM SERUM 142 mmol/L (136-145)
[2018-12-23 07:08] LABS: PLATELET COUNT 431 x10^3mcL (130-400); RED CELL DISTRIBUTION WIDTH 15.9 % (11.5-14.5)
--- NOTE | 2018-12-23 07:40 | NUR ---
ALERT ND ORIENTED. BREATHING FREELY ON RA. INTERMITTENT DISCOMFORT TO ABD SURGICAL INCISION SITE. ADVISED PT TO ACCEPT PAIN MEDS PRIOR TO P.T. PT DECLINED AND SAID MAYBE AFTER P.T. USES URINAL AT BEDSIDE. ABD SURGICAL INCISION WITH ROBINA NARCISA. STPLE SITES PINK. VERY SMALL AMT SEROUS FLUID AROUND UMBILICUS. GENERALIZED WEAKNESS. ABLE TO TURN AND REPOSITION SLEF IN BED.CALL LIGHT WITHIIN REACH.
[2018-12-23 09:07] VITALS: BP 122/72
--- NOTE | 2018-12-23 12:20 | NUR ---
Follow-up Nutrition Assessment: PAMELA SWEENEY FU HR Dx: Ruptured viscus PMHx: DM type 2, HLD Labs: (12/23): BG 142H, WBC 11.5H, ALB 1.4L Meds: D 10%, D50%, humulin, Zofran, heparin, TPN W/regular insulin 25 units/ bag Diet: Full liquid diet PO Intake: (12/23) 10%, (12/22) lunch full liquid 35%, breakfast clear liquid 35% Weights in kg: (12/18) 92.5, (12/19) 90.8, (12/20) 92.9, (12/21 93, (12/23) 93.5 Skin: mid abd incision s/p ex-lap (12/13), ADALBERTO drain, ecchymosis to ankles Louis: 16 I/Os: (12/23) 240/5 (235) Edema: trace non-pitting edema to ankles and feet GI: watery stools Last BM: 12/22 RDN Visit (12/23): Per Progress note, patient tolerating liquid diet, TPN to be D/C. Advance diet as tolerated. Patient was alert and oriented and said that he finished most of his breakfast this morning and has good appetite. However, patient said that his PO is less as he has gastric bypass surgery about 4 years ago. Patient said that he has been non-complaint with his multivitamins. Patient is willing to consume Uriel. Paged Dr. Samaniego to discuss recommendations, waiting for call back. PageGated the recommendations to Dr. Samaniego. Estimated Nutritional Needs based on adjusted body weight 73.5 kg: Energy: 8563-3999 (30-32 kcal/kg - wound healing) Protein: 88-110 g/d (1.2-1.4 g/kg) - wound healing Fluid: 8689-3682 (1ml/kcal) or per MD Nutrition Diagnosis 1. Increased nutrient needs related to increased metabolic demands as evidenced by presence of mid-abdominal sx wound s/p ex lap and need for TPN for nutrition support. 2. Inadequate parenteral nutrition infusion related to low feeding rate as evidenced by current feeding rate not meeting estimated calorie and protein needs. Intervention 1. Recommend CCHO full liquid diet. 2. Recommend Uriel for wound healing. 3. Recommend a daily multivitamin. Monitor/Evaluate Goal: Have pt meet at least 75% of estimated needs Monitor: TPN intake, Labs, GI function F/U in 2-3 days as high risk 12/25-4
--- NOTE | 2018-12-23 12:20 | NUR ---
1. Recommend CCHO full liquid diet. 2. Recommend Uriel for wound healing. 3. Recommend a daily multivitamin.
[2018-12-23 13:39] VITALS: BP 125/86
--- NOTE | 2018-12-23 15:05 | NUR ---
PHYSICAL THERAPY DAILY NOTES CO-SIGN All documentation done by the Generator Worker for 12/23/18 has been reviewed. I agree with the documentation. Reviewed/Co-Signed by: Tina Dodd PT Documentation Done by:KIAH NGUYỄN PTA
--- NOTE | 2018-12-23 16:00 | NUR ---
LENORA WIPES BATH, CHANGED GOWN, ASSISTED WITH GETTING PT READY TO SHAVE. ASSISED WITH REPOSITIIONING.
[2018-12-23 16:11] VITALS: BP 120/71
--- NOTE | 2018-12-23 18:43 | NUR ---
ALERT AND ORIENTED. SITTING UP IN BED. [employer] Fund[employer] ADMIN X 1 TODAY. UP WITH PT. THIS AM. [facility] CAME INTO SPEAK TO PT ABOUT GOING TO SNF FOR REHAB. PT TOLD [facility] WHERE HE WOULD LIKE TO GO IF POSSIBLE. SHE WILL LOOK INTO HIM GOING THERE THIS FACILITY WAS CONTRACTED WITH [facility] [place]. ABD INCISION CONTINUES TO SEEP A VERY SMALL AMT AT UMBILICUS AND NEAR CHEST AREA. SEROUS FLUID. ADALBERTO DRAINS ALL TOGETHER 3 CC OUTPUT. CALL LIGHT WITHIN REACH.
--- NOTE | 2018-12-23 19:40 | NUR ---
PT SEEN, RESTING IN BED, HOB AT 60 DEGREES, ALERT AND ORIENTED X 4 AND VERY VERABLLY RESPONSIVE, CONFEDERATED G[place] TO BOTH EARS, DENIES HEADACHE OR DIZZINESS, BREATHING EVEN AND UNLABORED, LUNG SOUNDS CLEAR, ON ROOM AIR WITH NO RESP DISTRESS NOTED, ON TELE#8 NSR, DENIES CHEST PAIN, RT UPPER ARM WITH PICC LINE DRESSING C/D/I, PULSES PALPABLE, NO EDEMA NOTED, GENERALIZED WEAKNESS BUT ABLE TO MOVE ALL EXT, ABD ROUND AND SOFT WITH ACTIVE BS, S/P EXP LAP X 2 WITH MIDLINE ABD INCISIONS, ROBINA AND OPEN TO AIR, TWO JPS FROM RT SIDE ABD, RT SUPERIOR ADALBERTO DRAINING SEROUS COLOR OUTPUT, RT INFERIOR ADALBERTO DRAINING ORANGE COLOR OUTPUT, LEFT SIDE ABD ADALBERTO DRAINING ORANGE OUTPUT, VOIDING FREELY WITH URINAL, NO DISTRESS NOTED, WILL KEEP TO MONITOR.
[2018-12-23 21:37] VITALS: Ht 175.3 cm; Wt 93.0 kg
[2018-12-23 21:48] VITALS: BP 110/48
[2018-12-23 22:20] VITALS: BP 118/66
--- NOTE | 2018-12-24 | NUR ---
ALL DUE MEDS GIVEN, PT ASLEEP AND APPEARS COMFORTABLE, BREATHING EVEN AND UNLABORED ON ROOM AIR WITH NO RESP DISTRESS NOTED, IVF INFUSING WELL WITH ZOSYN AT THIS TIME, NO DISTRESS NOTED, WILL KEEP TO MONITOR.
[2018-12-24 05:41] LABS: BASOPHIL % 0.2 % (0-2)
[2018-12-24 05:45] VITALS: BP 120/68
--- NOTE | 2018-12-24 05:45 | NUR ---
PT AWAKE AND RESTING IN BED, SLEPT ON AND OFF WHOLE NIGHT, NO BM DURING THE SHIFT, MORNING BLOOD SUGAR- 134 MG/DL WITH NO RISS, TOLERATED WELL WITH FULL LIQUID DIET, NO N&V NOTED, ALL DUE MEDS GIVEN, VIRGILIO WITH PICC LINE DRESSING C/D/I, NO DISTRESS NOTED, WILL KEEP TO MONITOR.
[2018-12-24 05:50] LABS: CALCIUM 8.6 mg/dL (8.5-10.1); CARBON DIOXIDE 27.8 mmol/L (21-32); CHLORIDE SERUM 105 mmol/L (98-107); CREATININE SERUM 0.7 mg/dL (0.7-1.3); GFR1 > 60 mL/min; GLUCOSE SERUM 127 mg/dL (74-106); PHOSPHOROUS 3.3 mg/dL (2.5-4.9); POTASSIUM SERUM 4.5 mmol/L (3.5-5.1); SODIUM SERUM 140 mmol/L (136-145)
[2018-12-24 06:07] LABS: PLATELET COUNT 476 x10^3mcL (130-400)
--- NOTE | 2018-12-24 06:50 | NUR ---
PT C/O OF PAIN TO INCISION SITE, NORCO 5/325 1 TAB VIA ORAL ADMINISTERED.
--- NOTE | 2018-12-24 07:05 | NUR ---
RECEIVED BEDSIDE REPORT FROM FIXED INCOME ANALYST NURSE AT THIS TIME. PATIENT RESTING COMFORTABLY IN BED. NO APPARENT DISTRESS OR DISCOMFORT NOTED. BILATERAL HEARING AIDS NOTED. BREATHING EVEN AND UNLABORED. NO RESPIRATORY DISTRESS OR DISCOMFORT NOTED. PATIENT DENIES SHORTNESS OF BREATH. PATIENT DENIES CHEST PAIN/PRESSURE AT THIS TIME. INCISION NOTED TO MIDLINE OF ABD WITH ROBINA OPEN TO AIR AND X3 ADALBERTO DRAINS, 2 JPS NOTED TO RIGHT SIDE OF ABD AND 1 AADLBERTO DRAIN NOTED TO LEFT SIDE OF ABD. PICC LINE NOTED TO VIRGILIO WITH DRESSING CDI AND PATENT. ALL QUESTIONS AND CONCERNS ADDRESSED. ALL NEEDS ATTENDED TO. WILL CONTINUE TO MONITOR
--- NOTE | 2018-12-24 07:22 | NUR ---
BEDSIDE HANDOFF REPORT DONE WITH MARIN, ALL QUESTIONS ANSWERED AND CONCERNS ADDRESSED.
--- NOTE | 2018-12-24 09:23 | NUR ---
DR WU AT BEDSIDE AT THIS TIME REVIEWING POC WITH PATIENT. DR WU REMOVED RIGHT SUPERIOR ABD ADALBERTO DRAIN AT THIS TIME. GAUZE IN PLACE, CDI. PER DR WU, RESIDENT TO REMOVE OTHER TWO ADALBERTO DRAINS, RIGHT INFERIOR ABD DRAIN AND LEFT ABD ADALBERTO DRAIN AND REMOVE EVERY OTHER STAPLE AND REPLACE WITH STERI STRIP AND TO REMOVED THE REST OF THE ROBINA TOMORROW 12/25/18. ALL QUESTIONS AND CONCERNS ADDRESSED. ALL NEEDS ATTENDED TO. WILL CONTINUE TO MONITOR
[2018-12-24 09:24] VITALS: BP 125/63
--- NOTE | 2018-12-24 10:09 | NUR ---
ALL MORNING MEDICATIONS ADMINISTERED. PATIENT TOLERATED WELL. NO ADVERSE EFFECTS NOTED. ALL NEEDS ATTENDED TO. WILL CONTINUE TO MONITOR
--- NOTE | 2018-12-24 10:42 | NUR ---
Ariel. NOTES AFTER MULTIPLE ATTEMPTS PATIENT REFUSED TO BE SEEN BY P.T., STATES WILL BE HAVING HIS ROBINA/TUBES REMOVED AND ALSO POSSIBLE D/C LATER IN THE AFTERNOON.
--- NOTE | 2018-12-24 10:49 | NUR ---
PER DR WU, RESIDENT TO REMOVED LAST TWO ADALBERTO DRAINS AND REMOVE EVERY OTHER STAPLE AND REPLACE WITH STERI STRIPS. INFORMED RESIDENTS AT THIS TIME. PER DR RIVAS, SHE WILL REMOVE ADALBERTO DRAINS AND ROBINA. AWAITING DR RIVAS AT THIS TIME. ALL NEEDS ATTENDED TO. WILL CONTINUE TO MONITOR
--- NOTE | 2018-12-24 11:15 | NUR ---
PATIENT BLOOD SUGAR 145 AT THIS TIME. NO INSULIN COVERAGE REQUIRED. ALL NEEDS ATTENDED TO. WILL CONTINUE TO MONITOR
--- NOTE | 2018-12-24 12:50 | NUR ---
PATIENT SITTING UP IN BED EATING LUNCH AT THIS TIME. PATIENT TOLERATING DIET WELL. NO APPARENT DISTRESS OR DISCOMFORT NOTED. ALL NEEDS ATTENDED TO. WILL CONTINUE TO MONITOR
[2018-12-24 13:05] VITALS: BP 128/67
--- NOTE | 2018-12-24 14:36 | NUR ---
PHYSICAL THERAPY DAILY NOTES CO-SIGN All documentation done by the Hardening Machine Operator Helper for 12/24/18 has been reviewed. I agree with the documentation. Reviewed/Co-Signed by: Tina Dodd PT Documentation Done by:KIAH NGUYỄN PTA
[2018-12-24 15:15] VITALS: BP 128/67
--- NOTE | 2018-12-24 15:49 | NUR ---
DR RIVAS AND DR DIAZ AT BEDSIDE REMOVING EVERY OTHER STAPLE TO ABD MIDLINE INCISION AND PLACING STERI STRIPS. DR RIVAS TO REMOVE BOTH ADALBERTO DRAINS (1 AND 2). PATIENT TOLERATING WELL. NO APPARENT DISTRESS OR DISCOMFORT NOTED. ALL NEEDS ATTENDED TO. WILL CONTINUE TO MONITOR
[2018-12-24 17:04] VITALS: BP 130/67
--- NOTE | 2018-12-24 18:46 | NUR ---
PATIENT RESTING COMFORTABLY IN BED AT THIS TIME. NO APPARENT DISTRESS OR DISCOMFORT NOTED. INCISION TO ABD NARCISA AND STERI STRIPS INTACT. PICC LINE DOUBLE LUMEN PATENT AND INTACT. ALL QUESTIONS AND CONCERNS ADDRESSED. ALL NEEDS ATTENDED TO. SAFETY PRECAUTIONS MAINTAINED. WILL ENDORSE ALL CARE TO CUTTER OPERATOR BRICK NURSE
--- NOTE | 2018-12-24 19:20 | NUR ---
RECEIVED PT LAYING IN BED, NO ACUTE DISTRESS OBSERVED, DENIES PAIN OR DISCOMFORT AT THIS TIME. MIDLINE ABD INCISION, PT HAD EVERY OTHER STAPLE REMOVED EARLIER TODAY, REMAINING ROBINA TO BE REMOVED TOMORROW, STERI STRIPS WITH DRESSING IN PLACE, CDI. PT HAD ADALBERTO DRAIN X3 REMOVED EARLIER TODAY WELL. LLQ WITH ROBINA, GAUZE AND TAPE, CDI. RLQ X2 WITH GAUZE AND TAPE, CDI. ABD ROUND AND SOFT WITH ACTIVE BOWEL SOUNDS, DENIES N/V/D. FULL LIQUID DIET, PT TOLERATING WELL. AA/OX4, ABLE TO MAKE NEEDS KNOWN, SPEECH CLEAR AND APPROPRIATE. [place], HEARING AIDS IN PLACE. NSR TO TELE #8, HR 84, NO CP. PULSES PRESENT AND EQUAL THROUGHOUT, NO EDEMA, PT ON HEP SQ THERAPY. BREATHING ON RA, EVEN AND UNLABORED, NO SOB OR DYSPNEA OBSERVED, LUNGS CTA. FREELY VOIDS URINE, URINAL AT BEDSIDE AND WITHIN REACH. GENERALIZED WEAKNESS, REFUSED UP WITH P.T. TODAY, MAX ASSIST WITH FWW. PICC LINE TO VIRGILIO IN PLACE, DOUBLE LUMEN, BOTH PORTS FLUSHED WITH NS, PATENT AND INTACT, DRESSING CDI. COMFORT AND SAFETY MEASURES IN PLACE. ALL NEEDS ASSESSED AND ATTENDED TO. CALL LIGHT WITHIN REACH. WILL CONTINUE TO MONITOR
[2018-12-24 20:31] VITALS: BP 136/64
--- NOTE | 2018-12-24 23:25 | NUR ---
DR. MURRIETA MADE AWARE NO AM LABS ORDERED FOR 12/25/18. WILL ANTICIPATE NEW ORDERS
--- NOTE | 2018-12-25 00:25 | NUR ---
PT LAYING IN BED, BREATHING EVEN AND UNLABORED, NO ACUTE DISTRESS OBSERVED. COMFORT AND SAFETY MEASURES IN PLACE. CALL LIGHT WITHIN REACH. WILL CONTINUE TO MONITOR
[2018-12-25 06:05] VITALS: BP 128/62
--- NOTE | 2018-12-25 06:14 | NUR ---
NO SIGNIFICANT CHANGES TO REPORT, PT COMPLIED WITH NURSING CARE THROUGHOUT THE SHIFT, PERIODS OF CONFUSION AND FORGETFULNESS. NO ACUTE DISTRESS OBSERVED AT THIS TIME. PT LAYING IN BED, BREATHING EVEN AND UNLABORED. COMFORT AND SAFETY MEASURES MAINTAINED. ALL NEEDS ASSESSED AND ATTENDED. BED IN LOWEST POSITION WITH SIDE RAILS UPX2 AND BED ALARM ACTIVATED. CALL LIGHT WITHIN REACH. WILL CONTINUE TO MONITOR AND ENDORSE CARE TO DAY SHIFT NURSE
--- NOTE | 2018-12-25 06:30 | NUR ---
NO SIGNIFICANT CHANGES TO REPORT, PT COMPLIED WITH NURSING CARE THROUGHOUT THE SHIFT WITH NO ACUTE EVENTS OVERNIGHT. NO ACUTE DISTRESS OBSEREVED AT THIS TIME, PT LAYING IN BED, BREATHING EVEN AND UNLABORED, WATCHING TV. COMFORT AND SAFETY MEASURES MAINTAINED. ALL NEEDS ASSESSED AND ATTENDED TO. CALL LIGHT WITHIN REACH. WILL CONTINUE TO MONITOR AND ENDORSE CARE TO DAY SHIFT NURSE
--- NOTE | 2018-12-25 07:11 | NUR ---
RECEIVED REPORT FROM KAYLYN COFFMNA. PATIENT RESTING COMFORTABLY IN BED ALL NEEDS MET. PICC NOTED TO VIRGILIO IS PATENT AND INTACT. TELE # [address]. PT DENIES CHEST PAIN. PT ON ROOM AIR. NO C/O SOB AND NO DISTRESS NOTED. MIDLINE INCISION NOTED TO ABDOMEN IS COVERED WITH ISLAND DRESSING 40% SOILED AND NEEDS CHANGING. PREVIOUSLY REMOVED ADALBERTO DRAIN SITES ARE COVERED WITH GAUZE AND TAPE AND CDI. ALL QUESTIONS AND CONCERNS ADDRESSED.
--- NOTE | 2018-12-25 07:39 | NUR ---
PT DECLINED HHN TX AT THIS TIME. PT WAS ADVISED TO CALL IF A TX IS NEEDED PRIOR TO NEXT SCHEDULED DOSE.
[2018-12-25 09:01] VITALS: BP 133/72
--- NOTE | 2018-12-25 09:47 | NUR ---
DR NASCIMENTO, RESIDENTS, PRIMARY RN AT BEDSIDE. PLAN IS TO HAVE FINAL ROBINA REMOVED AND POSSIBLY DISCHARGE TODAY. PT VERBLAIZED UNDERSTANDING AND ALL QUESTIONS AND CONCERNS WERE ADDRESSED.
--- NOTE | 2018-12-25 12:09 | NUR ---
SPOKE WITH DR SCHNEIDER ABOUT STAPLE REMOVAL. PER PATIENT, DR WU STATED THAT A RESIDENT MAY REMOVE REMAINING ROBINA TODAY. DR SCHNEIDER TO CALL DR WU FOR FURTHER INSTRUCTIONS.
[2018-12-25 12:27] VITALS: BP 120/67
[2018-12-25 17:10] VITALS: BP 138/61
--- NOTE | 2018-12-25 17:38 | NUR ---
DR SCHNEIDER IN TO SEE PATIENT AND REMOVE REMAINING ROBINA PER DR WU. STERISTRIPS APPLIED TO INCISION. MILD SEROUS DRAINAGE NOTED NEAR UMBILICUS AND 7 CM FROM TOP OF INCISION. PT TOLERATED IT WELL. ISLAND DRESSING APPLIED.
--- NOTE | 2018-12-25 19:20 | NUR ---
RECIEVED PT RESTING IN BED WITH NO ACUTE DISTRESS NOTED AT THIS TIME. ASSESSMENT PERFORMED, PT IS A/O X4 NO COMPLAINTS OF PAIN OR SOB, ABD DRSSINGS CDI, SAFETY PRECAUTIONS IN PLACE, WILL CONTINUE TO MONITOR.
--- NOTE | 2018-12-25 19:59 | NUR ---
REPORT GIVEN TO BARTOLO COFFMAN. ALL QUESTIONS AND CONCERNS ADDRESSED. ALL CARES ENDORSED.
--- NOTE | 2018-12-25 22:16 | NUR ---
PT COMPLAINS OF 5/10 THROBBING ABD PAIN, ADMINISTERED NORCO PRN PER ORDER, WILL CONTINUE TO MONITOR
[2018-12-25 22:53] VITALS: BP 125/61
--- NOTE | 2018-12-26 00:23 | NUR ---
PT RESTING IN BED PLAYING ON PHONE, PT DENIES SOB AT THIS TIME, PT DENIES PAIN AT THIS TIME, ALL NEEDS ATTENDED TO WILL CONIINUE TO MONITOR AND ENDORSE CARE
--- NOTE | 2018-12-26 02:35 | NUR ---
PT RESTING IN BED, WITH NO ACUTE DISTRESS, ALL NEEDS ATTENDED TO, PT DENIES PAIN OR SOB AT THIS TIME, WIGIACOMO CONTINUE TO MONITOR
[2018-12-26 04:57] VITALS: BP 139/62
--- NOTE | 2018-12-26 05:06 | NUR ---
PT RESTED COMFORTABLY THROUGH THE NIGHT WITH NO ACUTE DISTRESS. THE PATIENT DID HAVE ONE EPISODE OF PAIN WHICH RESOLVED WITH PRN ADMINISTRATION OF NORCO PER ORDER, SAFETY PRECAUTIONS MAINTAINED THROUGH THE NIGHT, WILL CONTINUE TO MONITOR AND ENDORSE CARE TO ONCOMING RN
[2018-12-26 06:30] LABS: CALCIUM 8.4 mg/dL (8.5-10.1); CARBON DIOXIDE 27.7 mmol/L (21-32); CHLORIDE SERUM 103 mmol/L (98-107); CREATININE SERUM 0.7 mg/dL (0.7-1.3); GFR1 > 60 mL/min; GLUCOSE SERUM 121 mg/dL (74-106); PHOSPHOROUS 3.5 mg/dL (2.5-4.9); POTASSIUM SERUM 4.3 mmol/L (3.5-5.1); SODIUM SERUM 137 mmol/L (136-145)
[2018-12-26 07:10] LABS: BASOPHIL % 0.4 % (0-2); PLATELET COUNT 437 x10^3mcL (130-400)
--- NOTE | 2018-12-26 07:15 | NUR ---
RECEIVED PT. IN BED A/A/O X3. NO SOB, NO N/V NOTED. PT. DENIES ANY PAIN AT THIS TIME. PICC LINE NOTED TO R UPPER ARM. BED IN LOW POS., CALL LIGHT WITHIN REACH. SIDE RAILS UP X3.
--- NOTE | 2018-12-26 07:23 | NUR ---
PT DECLINED HHN TX THIS MORNING. PT ADVISED TO CALL FOR PRN TX IF NEEDED PRIOR TO NEXT SCHEDULED DOSE.
[2018-12-26 09:17] VITALS: BP 133/68
--- NOTE | 2018-12-26 14:41 | NUR ---
Follow-up Nutrition Assessment Dx: Ruptured Viscus Labs: (12/26) Na 137, K 4.3, BG 121H, AST 56H, WBC 11.2H, H/H 11.3L/35L Meds: D50%, Diflucan, Humulin, Acme, Protonix, Tylenol, Zofran, Zosyn Diet: FLD PO intake: (12/26) B: 50% (12/25) B: 75% L: 50% D: 30% (12/24) B/D: 20%. Meeting <75% estimated needs. Weights: 93 kg Skin: Abdominal sx wound from exploratory lap Louis: 17 Edema: None Last BM: x 1 (12/24) Per provider progress notes, pt. noted with improved medical status. Pt. states that he is tolerating liquid diet well with normal BM per patient with minimal GI distress. No N/V/D/C noted. Reports decreased appetite from baseline and minor abdominal pain, but states that he is able to tolerate more liquids and soft foods better than several days prior. Estimated Nutritional Needs based on AJBW 73.5 kg: No changes from previous assessment. Energy: 9385-0415 kcal (30-32 kcal-wound healing) Protein: 88-110 g (1.2-1.4 g/kg-wounds and prevention of lean body mass losses) Fluid: 6115-2861 mL (1 mL/kcal or per MD order-for fluid balance and maintenance) Nutrition Diagnosis 1. Increased nutrient needs r/t increased metabolic demands AEB presence of mid-abdominal sx wound s/p ex lap. (modified-pt. on PO diet) 2. Inadequate parental nutrition infusion r/t low feeding rate AEB current feeding rate not meeting estimated calorie and protein needs (resolved). Intervention 1. When medically able, advance diet to CCHO 60 g to meet >75% estimated kcal and protein needs. 2. Add 8 oz Glucerna BID to current diet regimen for wound healing support, which will add an additional 440 kcal and 20 g protein. Monitor/Evaluate Previous goal: Have pt. meet at least 75% estimated needs (not met) Goal: PO intake at least 75% of estimated needs Monitor: PO intake, Labs, GI function, weight trends F/U in 3-5 days as moderate risk (12/29-12/31)
--- NOTE | 2018-12-26 17:26 | NUR ---
FLUSHED 5CC NS TO EACH LUMEN OF THE PICC LINE TO R UPPER ARM. ALL 2 LUMENS OF THE PICC LINE FLUSHED WELL.
[2018-12-26 17:38] VITALS: BP 136/70
--- NOTE | 2018-12-26 19:20 | NUR ---
RECIEVED PT RESTING IN BED WITH NO ACTUTE DISTRESS NOTED AT THIS TIME, PICC TO THE VIRGILIO SALINE LOCKED, ASSESSMENT PERFORMED AT THIS TIME, PT DENIES PAIN OR SOB AT THIS TIME, ABD DRESSING CDI, SCANT SEROUS DRAINAGE NOTED TO THE TOP OF THE DRESSING, CIRCLED WITH MARKER, ALL NEEDS ATTENDED TO AT THIS TIME, SAFETY PRECAUTIONS IN PLACE, WILL CONTINUE TO MONITOR
[2018-12-26 20:13] VITALS: BP 122/70
--- NOTE | 2018-12-26 22:31 | NUR ---
PT RESTING IN BED PLAING ON CELL PHONE, DENIES PAIN OR SOB AT THIS TIME, ALL NEEDS ATTENDED TO AT THIS TIME, SAFETY PRECAUTIONS IN PLACE, WILL CONTINUE TO MONITOR
--- NOTE | 2018-12-27 00:10 | NUR ---
PT RESTING IN BED WATCHING TV, NO ACUTE DISTRESS AT THIS TIME, PT DENIES PAIN OR SOB, SAFETY PRECAUTIONS IN PLACE, WILL CONTINUE TO MONITOR
--- NOTE | 2018-12-27 03:00 | NUR ---
PT RESTING IN BED WITH EYES CLOSED, EASILY AROUSABLE TO TACTILE STIMULI (HEARING AIDS OFF) PT DENIES PAIN OR SOB AT THIS TIME, SAFETY PRECAUTIONS IN PLACE, WILL CONTINUE TO MONITOR
[2018-12-27 04:34] VITALS: BP 138/71
--- NOTE | 2018-12-27 05:06 | NUR ---
PT RESTED THROUGH THE NIGHT WITH NO ACUTE DISTRESS, PT DENIED PAIN OR SOB THROUGH THE SHIFT, MINIMAL DRAINAGE FROM ABD DRESSING, SAFETY PRECAUTIONS WERE MAINTAINED THROUGH THE NIGHT, WILL CONTINUE TO MONITOR AND ENDORSE CARE TO ONCOMING RN
--- NOTE | 2018-12-27 05:57 | NUR ---
CHANGED THE MIDLINE ABD DRESSING, REMOVED SOILED DRESSING WITH MODERATE DRAINAGE AND REPLACED WITH CLEAN ISLAND DRESSING, CLEANSED PICC LINE WITH CHG WIPES, SAFETY PRECAUTIONS IN PLACE, WILL CONTINUE TO MONITOR
[2018-12-27 06:24] LABS: CALCIUM 8.9 mg/dL (8.5-10.1); CARBON DIOXIDE 25.2 mmol/L (21-32); CHLORIDE SERUM 102 mmol/L (98-107); CREATININE SERUM 0.7 mg/dL (0.7-1.3); GFR1 > 60 mL/min; GLUCOSE SERUM 121 mg/dL (74-106); PHOSPHOROUS 3.1 mg/dL (2.5-4.9); SODIUM SERUM 139 mmol/L (136-145)
[2018-12-27 06:35] LABS: BASOPHIL % 0.2 % (0-2)
[2018-12-27 06:37] LABS: PLATELET COUNT 450 x10^3mcL (130-400); RED CELL DISTRIBUTION WIDTH 15.9 % (11.5-14.5)
--- NOTE | 2018-12-27 07:20 | NUR ---
RECIVED HAND OFF REPORT FROM NIGHT NURSE, PATIENT FOUND A/O X4 ON ROOM AIR, SITTING UP IN BED WITH NO COMPLAINTS AT THIS TIME. CALL LIGHT WITHIN REACH, WILL CONTINUE TO MONITOR
[2018-12-27 09:24] VITALS: BP 95/68
--- NOTE | 2018-12-27 11:44 | NUR ---
PATIENT BLOOD SUGAR RESULT WAS 148, NO COVERAGE NEEDED. MEDICATIONS ADMINISTERED BY NURSING SCHOOL STUDENT WITH INSTRUCTOR. PATIENT HAS NO COMPLAINTS AT THIS TIME
--- NOTE | 2018-12-27 12:15 | NUR ---
PATIENT STATED HE WANTS TO BE DISCHARGED AND DOES NOT LIKE HAVING TO WAIT FOR PLACEMENT, INSTRUCTED PATIENT THAT IT IS NOT ADVISABLE FOR HIM TO GO HOME WHERE THERE IS NO ONE TO HELP HIM CARE FOR HIMSELF. PATIENT REQUESTING UPDATE FROM CASE MANAGEMENT ABOUT HIS PLACEMENT. WILL CALL [facility] FROM CASE MANAGEMENT
--- NOTE | 2018-12-27 12:46 | NUR ---
PATIENT SEEN BY PHYSICAL THERAPY. STRENGTH RETURNING, ABLE TO BETTER POSITION SELF IN BED. PATIENT SAT SELF UP TO SIDE OF BED AND WALKED FORWARD WITH WALKER 3 FEET. PATIENT STATES HE FEEL STRONGER. CALLED AND LEFT MESSAGE FOR [facility] IN CASE MANAGEMENT TO RETURN CALL ABOUT PATIENT'S CONCERNS AND PLACEMENT UPDATES
--- NOTE | 2018-12-27 13:03 | NUR ---
PATIENT COMPLAINING OF PAIN TO ABDOMEN, SHARP MIDLINE OF ABD. 7/10. PATIENT HAD JUST AMBUATED WITH PHYSICAL THERAPY AND BELIEVES HE AGRIVATED HIS INCISION. VISUALIZED DRESSING, SLIGHT INCREASE IN DRAINAGE FROM INCISION ON DRESSING, MARKED WITH MARKER TO TRACK PROGRESS. WILL CONTINUE TO MONITOR. CALL LIGHT WITHIN PATIENT REACH
--- NOTE | 2018-12-27 14:12 | NUR ---
PATIENT SEEN RESTING AT THIS TIME. RT AT BEDSIDE TO OFFER BREATHING TREATMENT. PATIENT STATED HIS PAIN IS GREATLY REDUCED AND HE WAS ABLE TO SLEEP. REASSESSED ABD DRESSING. NO CHANGE IN BLEEDING/DISCHARGE. WILL CONTINUE TO MONITOR
--- NOTE | 2018-12-27 14:27 | NUR ---
REATTEMPTED TO CONTACT CASE MANAGEMENT ABOUT PATIENT WANTED UPDATE FOR DISCHARGE PLACEMENT. REINFORCED TEACHING TO PATIENT ABOUT IMPORTANCE OF SNF/REHAB NEEDS. PATIENT UNDERSTANDING OF DELAYS
--- NOTE | 2018-12-27 16:00 | NUR ---
SPOKE WITH [facility] IN CASE MANAGEMENT. PATIENT SLEEPING BOTH TIMES [facility] CAME TO DISCUSS PLAN WITH PATIENT. WILL INFORM PATIENT WHEN HE WAKES. AT THIS TIME PATIENT IS STILL RESTING, NO DISTRESS NOTED
--- NOTE | 2018-12-27 17:22 | NUR ---
ADMINISTERED MEDICATION PER JUL. BG RESULT WAS 173, 3UNITS INSULIN DIRECTOR OF OPERATIONS FOR THERAPY PER SLIDING SCALE. UPDATED PATIENT ON CASE MANAGEMENT INFORMATION. INFORMED PATIENT HE CAN CALL CASE MANAGEMENT IF HE HAS QUESTIONS AND THAT A DOUBLE CORNER CUTTER WILL BE IN TO SEE HIM
[2018-12-27 17:25] VITALS: BP 122/70
--- NOTE | 2018-12-27 18:37 | NUR ---
UPDATED PATIENT ON PROCEDURE FOR HIM TO BE ABLE TO AMA. PATIENT HAS PICC LINE TO RIGHT ARM. PATIENT SEEN BY DR DIAZ AND DR EXPLAINED RISKS OF LEAVING AMA. PATIENT SIGNED AMA PAPERWORK. INFORMED PATIENT WE ARE WAITNG TO HEAR FROM PICC NURSE FOR REMOVAL TIME
--- NOTE | 2018-12-27 20:00 | NUR ---
PT'S VIRGILIO PICC LINE REMOVED BY MEDICAL SERVICE TECHNICIAN, RUFINO. PT TOLERATED PROCEDURE WELL. DRESSING DRY AND INTACT, ADEQUATE PRESSURE APPLIED. VITAL SIGNS STABLE AFTER REMOVAL OF PICC LINE. PT EDUCATED TO MAKE NURSE AWARE IF HE OBSERVES ANY BLEEDING OR PAIN. PT REEDUCATED ON IMPORTANCE OF STAYING IN HOSPITAL TO BE TRANSFERRED TO APPROPRIATE SNF ORDERED. PT STILL INSISTING ON LEAVING AMA. AMA PAPERWORKS SIGNED WITH PREVIOUS SHIFT AND IN CHART. PT AWAITING ARRIVAL OF HIS BROTHER. NO ACUTE DISTRESS OBSERVED. CALL LIGHT WITHIN REACH. WILL CONTINUE TO MONITOR
[2018-12-27 20:19] VITALS: BP 119/67
[2018-12-27 20:30] VITALS: BP 137/75
--- NOTE | 2018-12-27 20:30 | NUR ---
VITAL SIGNS REASSESSED, STABLE AT THIS TIME AND INPUTTED. NO BLEEDING FROM VIRGILIO NOTED, DRESSING CDI.
--- NOTE | 2018-12-27 21:15 | NUR ---
PT ACCOMPANIED BY MOTHER, BROTHER, AND FOOD QUALITY TECHNICIANPHILLIP. VIA WHEELCHAIR. NO ACUTE DISTRESS OBSERVED. ALL BELONGINGS WITH PT. RX FOR PROTONIX PO GIVEN TO PT.
== END 2018-12-27 21:20 | disposition left against medical advice (07) | DRG 710 ==
LOC: ED 20:09 → DU 23:43 → IC 23:43 → DU 12-09 03:44 → IC 12-13 02:14 → DU 12-21 19:00 → MU 12-26 05:01
PROVIDERS: Emergency Medicine; Family Medicine Addiction Medicine; General Practice; Internal Medicine; ADMIT Internal Medicine
PROC: 0DUA07Z Supplement Jejunum with Autologous Tissue Substitute, Open Approach (ICD-10-PCS; principal; 2018-12-09 11:15)
PROC: 0DBU0ZZ Excision of Omentum, Open Approach (ICD-10-PCS; 2018-12-13)
PROC: 0D9W00Z Drainage of Peritoneum with Drainage Device, Open Approach (ICD-10-PCS; 2018-12-13)
PROC: 0DUA07Z Supplement Jejunum with Autologous Tissue Substitute, Open Approach (ICD-10-PCS; 2018-12-13)
PROC: 5A1945Z Respiratory Ventilation, 24-96 Consecutive Hours (ICD-10-PCS; 2018-12-13)
DX: A41.9 Sepsis, unspecified organism (principal); J96.01 Acute respiratory failure with hypoxia; E43 Unspecified severe protein-calorie malnutrition; N17.0 Acute kidney failure with tubular necrosis; K63.1 Perforation of intestine (nontraumatic); E87.2 Acidosis; K65.0 Generalized (acute) peritonitis; K28.5 Chronic or unspecified gastrojejunal ulcer with perforation; E87.0 Hyperosmolality and hypernatremia; K68.11 Postprocedural retroperitoneal abscess; T85.638A Leakage of other specified internal prosthetic devices, implants and grafts, initial encounter; E87.8 Other disorders of electrolyte and fluid balance, not elsewhere classified; E11.65 Type 2 diabetes mellitus with hyperglycemia; E86.1 Hypovolemia; H91.90 Unspecified hearing loss, unspecified ear; E78.5 Hyperlipidemia, unspecified; Z72.0 Tobacco use; Z98.84 Bariatric surgery status; Z90.49 Acquired absence of other specified parts of digestive tract; Z90.79 Acquired absence of other genital organ(s); Z79.84 Long term (current) use of oral hypoglycemic drugs; Y83.2 Surgical operation with anastomosis, bypass or graft as the cause of abnormal reaction of the patient, or of later complication, without mention of misadventure at the time of the procedure; Y92.230 Patient room in hospital as the place of occurrence of the external cause
CPT/HCPCS: 36600; 82962; 84439; 94150; 97110-GP; 97116-GP; 97530-GP; A4628; A9698; C1758; C9113; G0378; J0330; J0690; J0694; J1170; J1450; J1644; J1815; J1885; J1940; J2001; J2185; J2250; J2270; J2405; J2543; J2704; J2710; J3010; J3480; J3490; J7030; J7040; J7042; J7050; J7060; J7070; J7120; J7131; J7620; Q0092; Q9966; Q9967